=== PATIENT | male | born 1940 | race Caucasian/White ===

== ENCOUNTER 2017-03-19 09:42 | Inpatient (IN) | payer MEDICARE, OTHER ==
--- NOTE | 2017-03-19 10:29 | XRay Report ---
Chest 2 views: Compared to 02/28/17. Findings: Cardiomegaly. Trachea is midline. Stable pacemaker. Pleural thickening and/ or pleural effusion right chest. No definite acute consolidation. No significant venous congestion. Impression: Pleural thickening and/or pleural effusion right chest.
[2017-03-19 10:37] LABS: Basophils % (Auto) 0.3 % (0.0-1.8); Eosinophils % (Auto) 0.6 % (0.0-4.3); Hematocrit 29.5 % (35.5-45.6); Hemoglobin 9.7 gm/dl (11.8-15.2); Mean Corpuscular HGB Conc 33 % (32-34); Mean Corpuscular Hemoglobin 30 pg (28-32); Mean Corpuscular Volume 92 fl (84-94); Platelet Count 124 K/mm3 (140-440); Red Blood Count 3.21 M/mm3 (3.65-5.03); Red Cell Distribution Width 16.9 % (13.2-15.2); White Blood Count 7.6 K/mm3 (4.5-11.0)
[2017-03-19 10:54] LABS: BUN/Creatinine Ratio 11.12; Calcium 6.7 mg/dL (8.4-10.2); Chloride 90.8 mmol/L (98-107); Potassium 4.4 mmol/L (3.6-5.0)
--- NOTE | 2017-03-19 11:11 | Emergency Department Report ---
- General Chief complaint: Weakness Stated complaint: WEAKNESS/CINDA Time Seen by Provider: 03/19/17 10:06 Source: EMS Mode of arrival: Stretcher Limitations: Physical Limitation - History of Present Illness Initial comments: 76-year-old 76-year-old male here with end-stage renal disease complaining of shortness of breath nausea vomiting. States he almost finished his normal dialysis but has to be removed from itching. Started vomiting while in the bathroom. Denies abdominal pain or chest pain. Does complain of some mild shortness of breath. No fevers chills cough. He was in his normal state of health up until this point. According to family he appears to be close to his baseline. MD Complaint: generalized weakness -: Sudden Severity: mild Consistency: constant Improves with: none Worsens with: none Associated Symptoms: nausea/vomiting, shortness of breath. denies: chest pain, confusion, dark stools, diaphoresis, dysuria - Related Data Home Medications Medication Instructions Recorded Confirmed Last Taken Ca Carb/D3/Mag Ox/Water Pumping Station Engineer/Morgan/Zn 1 each PO DAILY 08/25/15 03/19/17 03/18/17 [Caltrate+D3 Plus Mineral Minis] Calcium Carbonate/Vitamin D3 1 each PO DAILY 02/28/17 03/19/17 03/18/17 [Caltrate 600 Plus D3 Tablet] Prednisone [predniSONE] 2.5 mg PO QDAY 02/28/17 03/19/17 03/18/17 Vit B Comp&C/Folic Acid/Vit D3 1 each PO DAILY 02/28/17 03/19/17 03/18/17 [Dialyvite 800 Plus D Wafer] Previous Rx's Medication Instructions Recorded Last Taken Type Acetaminophen/Codeine [Tylenol 1 tab PO Q6H PRN #30 tab 03/02/17 Unknown Rx /Codeine # 3 tab] Carvedilol [Coreg] 3.125 mg PO DAILY #30 tablet 03/02/17 03/18/17 Rx Lisinopril [Zestril TAB] 2.5 mg PO QDAY #30 tablet 03/02/17 03/18/17 Rx Megestrol [Megace] 400 mg PO DAILY #30 oral.liqd 03/02/17 03/18/17 Rx Allergies Allergy/AdvReac Type Severity Reaction Status Date / Time No Known Allergies Allergy Verified 09/29/15 14:30 ED Review of Systems ROS: Stated complaint: WEAKNESS/CINDA Other details as noted in HPI Comment: All other systems reviewed and negative Constitutional: denies: chills, fever Eyes: denies: eye pain, eye discharge, vision change ENT: denies: ear pain, throat pain Respiratory: shortness of breath, SOB at rest. denies: cough, SOB with exertion , wheezing Cardiovascular: denies: chest pain, palpitations Endocrine: no symptoms reported Gastrointestinal: nausea, vomiting. denies: abdominal pain, diarrhea Genitourinary: denies: urgency, dysuria Musculoskeletal: denies: back pain, joint swelling, arthralgia Skin: denies: rash, lesions Neurological: denies: headache, weakness, paresthesias Psychiatric: denies: anxiety, depression Hematological/Lymphatic: denies: easy bleeding, easy bruising ED Past Medical Hx - Past Medical History Previous Medical History?: Yes Hx Hypertension: Yes Hx Heart Attack/AMI: Yes Hx Congestive Heart Failure: Yes Hx Renal Disease: Yes (dialysis M, W, F) Hx Arthritis: Yes Hx COPD: Yes Hx HIV: No Additional medical history: kidney and prostate cancer - Surgical History Past Surgical History?: Yes Hx Pacemaker: Yes Hx Internal Defibrillator: Yes Additional Surgical History: Bilateral nephrectomy secondary to renal CA. R great toe amputation - Family History Family history: no significant - Social History Smoking Status: Never Smoker Substance Use Type: None - Medications Home Medications: Home Medications Medication Instructions Recorded Confirmed Last Taken Type Ca Carb/D3/Mag Ox/Water Pumping Station Engineer/Morgan/Zn 1 each PO DAILY 08/25/15 03/19/17 03/18/17 History [Caltrate+D3 Plus Mineral Minis] Calcium Carbonate/Vitamin D3 1 each PO DAILY 02/28/17 03/19/17 03/18/17 History [Caltrate 600 Plus D3 Tablet] Prednisone [predniSONE] 2.5 mg PO QDAY 02/28/17 03/19/17 03/18/17 History Vit B Comp&C/Folic Acid/Vit D3 1 each PO DAILY 02/28/17 03/19/17 03/18/17 History [Dialyvite 800 Plus D Wafer] Acetaminophen/Codeine [Tylenol 1 tab PO Q6H PRN #30 tab 03/02/17 03/19/17 Unknown Rx /Codeine # 3 tab] Carvedilol [Coreg] 3.125 mg PO DAILY #30 tablet 03/02/17 03/19/17 03/18/17 Rx Lisinopril [Zestril TAB] 2.5 mg PO QDAY #30 tablet 03/02/17 03/19/17 03/18/17 Rx Megestrol [Megace] 400 mg PO DAILY #30 oral.liqd 03/02/17 03/19/17 03/18/17 Rx ED Physical Exam - General Limitations: Physical Limitation General appearance: alert, in no apparent distress - Head Head exam: Present: atraumatic, normocephalic - Eye Eye exam: Present: normal appearance - ENT ENT exam: Present: mucous membranes moist - Neck Neck exam: Present: normal inspection - Respiratory Respiratory exam: Present: normal lung sounds bilaterally, decreased breath sounds (decreased breath sounds on the right side). Absent: respiratory distress - Cardiovascular Cardiovascular Exam: Present: regular rate, normal rhythm. Absent: systolic murmur, diastolic murmur, rubs, gallop - GI/Abdominal GI/Abdominal exam: Present: soft, normal bowel sounds - Rectal Rectal exam: Present: deferred - Extremities Exam Extremities exam: Present: normal inspection, other (right arm dialysis fistula) - Back Exam Back exam: Present: normal inspection. Absent: tenderness, CVA tenderness (R), CVA tenderness (L) - Neurological Exam Neurological exam: Present: alert, oriented X3 - Psychiatric Psychiatric exam: Present: normal affect, normal mood - Skin Skin exam: Present: warm, dry, intact, normal color. Absent: rash ED Course Vital Signs 03/19/17 09:56 Temperature 98.4 F Pulse Rate 76 Respiratory 21 Rate Blood Pressure 136/71 O2 Sat by Pulse 97 Oximetry ED Medical Decision Making - Lab Data Result diagrams: 03/19/17 10:21 03/19/17 10:21 Laboratory Results - last 24 hr 03/19/17 03/19/17 10:21 10:21 WBC 7.6 RBC 3.21 L Hgb 9.7 L Hct 29.5 L MCV 92 MCH 30 MCHC 33 RDW 16.9 H Plt Count 124 L Lymph % (Auto) 3.7 L [place] % (Auto) 7.1 Eos % (Auto) 0.6 Baso % (Auto) 0.3 Lymph # 0.3 L [place] # 0.5 Eos # 0.0 Baso # 0.0 Seg Neutrophils % 88.3 H Seg Neutrophils # 6.7 Sodium 135 L Potassium 4.4 Chloride 90.8 L Carbon Dioxide 24 Anion Gap 25 BUN 89 H Creatinine 8.0 H Estimated GFR 7 BUN/Creatinine Ratio 11.12 Glucose 122 H Calcium 6.7 L Troponin T 0.327 H* - EKG Data -: EKG Interpreted by Ak - EKG Data 03/19/17 11:10 Paced rate is 71 left axis deviation and prolonged QTC of [address] segment changes T-wave inversion in V2 - Radiology Data Radiology results: report reviewed, image reviewed - Medical Decision Making Patient is a 76-year-old male with a history of end-stage renal disease here with complaint of shortness of breath and nausea and vomiting. Denies chest pain. EKG without ischemic changes. He is paced. On clinical exam he had some decreased breath sounds on the right side. This is consistent with his x- ray which shows a likely pleural effusion on the right. Unclear etiology of this effusion. His troponin is 0.32. It is likely this is related to his renal failure however this is slightly higher than typical. Plan to admit the patient to the internal medicine service. Chest x-ray shows a right-sided pleural effusion. Given the patient's symptoms and recurrence of these finding on x-ray plan to admit the patient to the hospitalist service. Discussed case with hospitalist and plan to admit. Portions of this chart were dictated with dictation software. There may be dictation errors contained within this note. Critical care attestation.: If time is entered above; I have spent that time in minutes in the direct care of this critically ill patient, excluding procedure time. ED Disposition Clinical Impression: Elevated troponin, Pulmonary edema Chronic congestive heart failure Qualifiers: Congestive heart failure type: unspecified congestive heart failure type Qualified Code(s): I50.9 - Heart failure, unspecified Disposition: 09 OP ADMIT IP TO THIS HOSP Is pt being admited?: Yes Condition: Stable
--- NOTE | 2017-03-19 11:37 | History and Physical Report ---
History of Present Illness Chief complaint: I feel weak, and i cant hardly catch my breath History of present illness: 76 YO Male with HTN, SC, CHF, ESRD on HD (M,W,F), OA, COPD, RCC, CaP presents to ED for evaluation. Pt states that he has experienced shortness of breath, nausea, with 2 episodes of vomiting over the past 6 hours. Pt was undergoing dialysis and could not complete due to itching, as well as the aforementioned symptoms. Pt denies fever, chills, CP, Palpitations, Syncope, recent ill contacts, productive cough, hemoptysis, BRBPR, unintentional weight loss, or night sweats. Past History Past Medical History: acute SC, arthritis, cancer, COPD, ESRD, hypertension Past Surgical History: Other (Bilateral nephrectomy secondary to renal CA. R great toe amputation,ICD placement) Social history: , lives with family. denies: smoking, alcohol abuse, prescription drug abuse, IV drug use Family history: CAD, hypertension Medications and Allergies Allergies Allergy/AdvReac Type Severity Reaction Status Date / Time No Known Allergies Allergy Verified 09/29/15 14:30 Home Medications Medication Instructions Recorded Confirmed Last Taken Type Ca Carb/D3/Mag Ox/Childcare Administrator/Morgan/Zn 1 each PO DAILY 08/25/15 03/19/17 03/18/17 History [Caltrate+D3 Plus Mineral Minis] Calcium Carbonate/Vitamin D3 1 each PO DAILY 02/28/17 03/19/17 03/18/17 History [Caltrate 600 Plus D3 Tablet] Prednisone [predniSONE] 2.5 mg PO QDAY 02/28/17 03/19/17 03/18/17 History Vit B Comp&C/Folic Acid/Vit D3 1 each PO DAILY 02/28/17 03/19/17 03/18/17 History [Dialyvite 800 Plus D Wafer] Acetaminophen/Codeine [Tylenol 1 tab PO Q6H PRN #30 tab 03/02/17 03/19/17 Unknown Rx /Codeine # 3 tab] Carvedilol [Coreg] 3.125 mg PO DAILY #30 tablet 03/02/17 03/19/17 03/18/17 Rx Lisinopril [Zestril TAB] 2.5 mg PO QDAY #30 tablet 03/02/17 03/19/17 03/18/17 Rx Megestrol [Megace] 400 mg PO DAILY #30 oral.liqd 03/02/17 03/19/17 03/18/17 Rx Review of Systems Constitutional: no weight loss, no weight gain, no fever Ears, nose, mouth and throat: no ear pain, no ear discharge Cardiovascular: shortness of breath, no chest pain, no syncope Respiratory: shortness of breath, dyspnea on exertion, no cough with sputum Gastrointestinal: no abdominal pain, no nausea, no vomiting Genitourinary Male: no dysuria, no hematuria, no flank pain Rectal: no pain, no bleeding Musculoskeletal: no neck stiffness, no neck pain Integumentary: no rash, no pruritis Neurological: no head injury Psychiatric: no anxiety, no memory loss Endocrine: no cold intolerance, no heat intolerance Hematologic/Lymphatic: no easy bruising, no easy bleeding Allergic/Immunologic: no urticaria Exam - Constitutional Vitals: Temp Pulse Resp BP Pulse Ox 98.4 F 76 21 136/71 97 03/19/17 09:56 03/19/17 09:56 03/19/17 09:56 03/19/17 09:56 03/19/17 09:56 General appearance: Present: mild distress - EENT Eyes: Present: PERRL ENT: hearing intact, clear oral mucosa - Neck Neck: Present: supple, normal ROM - Respiratory Respiratory effort: labored Respiratory: bilateral: diminished, rhonchi - Cardiovascular Heart Sounds: Present: S1 & S2. Absent: rub, click - Extremities Extremities: pulses symmetrical, No edema Extremity abnormal: edema Peripheral Pulses: within normal limits - Abdominal General gastrointestinal: Present: soft, non-tender, non-distended, normal bowel sounds Male genitourinary: Present: normal - Integumentary Integumentary: Present: clear, warm, dry - Musculoskeletal Musculoskeletal: generalized weakness - Psychiatric Psychiatric: appropriate mood/affect, cooperative - Neurologic Neurologic: CNII-XII intact, moves all extremities Results - Labs CBC & Chem 7: 03/19/17 10:21 03/19/17 10:21 Labs: Abnormal lab results 03/19/17 03/19/17 Range/Units 10:21 10:21 RBC 3.21 L (3.65-5.03) M/mm3 Hgb 9.7 L (11.8-15.2) gm/dl Hct 29.5 L (35.5-45.6) % RDW 16.9 H (13.2-15.2) % Plt Count 124 L (140-440) K/mm3 Lymph % (Auto) 3.7 L (13.4-35.0) % Lymph # 0.3 L (1.2-5.4) K/mm3 Seg Neutrophils % 88.3 H (40.0-70.0) % Sodium 135 L (137-145) mmol/L Chloride 90.8 L (98-107) mmol/L BUN 89 H (9-20) mg/dL Creatinine 8.0 H (0.8-1.5) mg/dL Glucose 122 H (75-100) mg/dL Calcium 6.7 L (8.4-10.2) mg/dL Troponin T 0.327 H* (0.00-0.029) ng/mL Assessment and Plan - Patient Problems (1) Acute respiratory failure Current Visit: No Status: Acute Qualifiers: Respiratory failure complication: hypoxia Qualified Code(s): J96.01 - Acute respiratory failure with hypoxia Plan to address problem: Supplemental oxygen, nebs, aspiration precautions, supportive care, NIPPV as clinically indicated, pulmonary toilet (2) COPD (chronic obstructive pulmonary disease) Current Visit: No Status: Chronic Qualifiers: COPD type: C Chronic bronchitis type: C Emphysema type: E Plan to address problem: supplemental oxygen, nebs, aspiration precautions, dialysis as per renal team (3) End stage renal disease on dialysis Current Visit: No Status: Chronic Plan to address problem: Nephrology consulted, dialysis as per renal team. (4) Hypertension Current Visit: No Status: Chronic Qualifiers: Hypertension type: essential hypertension Qualified Code(s): I10 - Essential (primary) hypertension Plan to address problem: resume home medication, monitor bp q shift (5) Hyponatremia syndrome Current Visit: Yes Status: Acute Plan to address problem: fluid restriction, dialysis as per renal team, repeat bmp (6) Prostate cancer Current Visit: Yes Status: Acute Plan to address problem: Supportive care, (7) Renal cell carcinoma Current Visit: Yes Status: Acute Qualifiers: Laterality: L Plan to address problem: S/P Nephrectomy, continue current care (8) DVT prophylaxis Current Visit: No Status: Suspected
[2017-03-19] MEDS ORDERED: DULCOLAX PR PRN (11:39)
[2017-03-19] MEDS ORDERED: PROVENTIL IH PRN (11:39)
[2017-03-19] MEDS ORDERED: MILK OF MAGNESIA PO PRN (11:39)
[2017-03-19] MEDS ORDERED: TYLENOL PO PRN (11:39)
[2017-03-19] MEDS ORDERED: ZOFRAN IV PRN (11:39)
--- NOTE | 2017-03-19 12:01 | Admit Criteria Form ---
Admission Criteria Documentation: PULMONARY EDEMA Clinical Indications for Admission to Inpatient Care (Place 'X' for any and all applicable criteria): Admission is indicated by ANY ONE of the following(1)(2)(3)(4): [ ]I. Severe electrolyte abnormalities requiring inpatient care(9) [ ]II. Hemodynamic instability [ ]III. Anasarca [ ]IV. Acute cardiac ischemia causing or associated with failure (Also use Angina or Myocardial Infarction as appropriate) [ ]V. Cardiac arrhythmias of immediate concern [ ]. Precipitating cause for acute decompensation (eg, pneumonia, pulmonary embolism) requires inpatient care [ ]VII. Pulmonary edema that is very severe (eg, mechanical ventilation needed, imminent or likely, need for 100% oxygen to keep oxygen saturation above 90%) [X]VIII. Inpatient admission required rather than observation care (Also use Heart Failure: Observation Care as appropriate) because of ANY ONE of the following: [ ]a) Pulmonary edema that is severe or worsening as indicated by ALL of the following: [ ]i) New need for oxygen therapy to keep oxygen saturation above 90% (or increased FiO2 need from baseline) [ ]ii) Has not improved sufficiently with emergency department or observation care IV diuretics or other heart failure treatments[C] [ ]b) Cognitive impairment that is severe or persistent [ ]c) Increased creatinine (new on laboratory test) with reduction of more than 50% in estimated glomerular filtration rate from baseline. [ ]d) Acute renal insufficiency (progressively (ongoing) rising creatinine (known from past laboratory test) with reduction of more than 25% in estimated glomerular filtration rate from baseline) [ ]e) Acute peripheral ischemia (eg, pulseless, cool, mottled, or cyanotic extremity) [ ]f) Acute renal failure [ ]g) Supplemental O2 or respiratory treatment for >24 hr that are performable only in acute inpatient setting [ ]h) Pulmonary artery catheter monitoring [X]i) Other condition, treatment or monitoring requiring inpatient admission Extended stay beyond goal length of stay may be needed for(1)(3)(21)(25): [ ]a) Cardiac ischemia, confirmed or suspected as precipitant [ ]b) Cardiogenic shock or refractory pulmonary edema [ ]c) Acute kidney injury or renal failure [ ]d) Respiratory failure (eg, need for noninvasive or invasive mechanical ventilation) (23) [ ]e) Concomitant pneumonia or significant electrolyte abnormality (eg, severe hyponatremia) [ ]f) Newly diagnosed (new onset) atrial fibrillation [ ]g) Stage IV chronic kidney disease (estimated glomerular filtration rate of less than 30 mL/min/1.73m2 (0.50 mL/sec/1.73m2), and not previously on chronic dialysis (Contents from HEART FAILURE clinical indications for admission to inpatient care have been integrated in this form) The original [facility] content created by [facility] has been revised. The portions of the content which have been revised are identified through the use of italic text or in bold, and [facility] has neither reviewed nor approved the modified material. All other unmodified content is copyright [facility] Please see references footnoted in the original [facility] [employer] edition 2016 Admission Criteria Met: Yes
--- NOTE | 2017-03-20 07:22 | Progress Note ---
Hospitalist Physical - Constitutional Vitals: Temp Pulse Resp BP Pulse Ox 97.6 F 72 18 128/68 98 03/20/17 05:04 03/20/17 05:04 03/20/17 05:04 03/20/17 05:04 03/20/17 05:04 General appearance: Present: mild distress Results - Labs CBC & Chem 7: 03/19/17 10:21 03/19/17 10:21 Labs: Laboratory Last Values WBC 7.6 K/mm3 (4.5-11.0) 03/19/17 10:21 RBC 3.21 M/mm3 (3.65-5.03) L 03/19/17 10:21 Hgb 9.7 gm/dl (11.8-15.2) L 03/19/17 10:21 Hct 29.5 % (35.5-45.6) L 03/19/17 10:21 MCV 92 fl (84-94) 03/19/17 10:21 MCH 30 pg (28-32) 03/19/17 10:21 MCHC 33 % (32-34) 03/19/17 10:21 RDW 16.9 % (13.2-15.2) H 03/19/17 10:21 Plt Count 124 K/mm3 (140-440) L 03/19/17 10:21 Lymph % (Auto) 3.7 % (13.4-35.0) L 03/19/17 10:21 [place] % (Auto) 7.1 % (0.0-7.3) 03/19/17 10:21 Eos % (Auto) 0.6 % (0.0-4.3) 03/19/17 10:21 Baso % (Auto) 0.3 % (0.0-1.8) 03/19/17 10:21 Lymph # 0.3 K/mm3 (1.2-5.4) L 03/19/17 10:21 [place] # 0.5 K/mm3 (0.0-0.8) 03/19/17 10:21 Eos # 0.0 K/mm3 (0.0-0.4) 03/19/17 10:21 Baso # 0.0 K/mm3 (0.0-0.1) 03/19/17 10:21 Seg Neutrophils % 88.3 % (40.0-70.0) H 03/19/17 10:21 Seg Neutrophils # 6.7 K/mm3 (1.8-7.7) 03/19/17 10:21 Sodium 135 mmol/L (137-145) L 03/19/17 10:21 Potassium 4.4 mmol/L (3.6-5.0) 03/19/17 10:21 Chloride 90.8 mmol/L (98-107) L 03/19/17 10:21 Carbon Dioxide 24 mmol/L (22-30) 03/19/17 10:21 Anion Gap 25 mmol/L 03/19/17 10:21 BUN 89 mg/dL (9-20) H 03/19/17 10:21 Creatinine 8.0 mg/dL (0.8-1.5) H 03/19/17 10:21 Estimated GFR 7 ml/min 03/19/17 10:21 BUN/Creatinine Ratio 11.12 % 03/19/17 10:21 Glucose 122 mg/dL (75-100) H 03/19/17 10:21 Calcium 6.7 mg/dL (8.4-10.2) L 03/19/17 10:21 Troponin T 0.327 ng/mL (0.00-0.029) H* 03/19/17 10:21 Triglycerides 86 mg/dL (2-149) 03/19/17 10:21 Cholesterol 142 mg/dL (50-199) 03/19/17 10:21 LDL Cholesterol Direct 65 mg/dL (50-130) 03/19/17 10:21 HDL Cholesterol 60 mg/dL (40-59) H 03/19/17 10:21 Cholesterol/HDL Ratio 2.36 % 03/19/17 10:21
--- NOTE | 2017-03-20 08:00 | Progress Note ---
<PEDRO PABLOAHSLEYMELANIESALVATORE - Last Filed: 03/20/17 15:12> Assessment and Plan Assessment and plan: Acute respiratory failure Patient oxygen saturation improved currently on room air with SPO2 >95%. No acute respiratory distress noted. Aggressive nebs Supplemental oxygen as necessary Aspiration precautions NIPPV as clinically indicated pulmonary toilet C. difficile infection Started on Flagyl 500 mg when necessary Placed on contact isolation COPD (chronic obstructive pulmonary disease) Started on Duoneb every 6 hours Supplemental oxygen as necessary End stage renal disease on dialysis On dialysis Managed by Nephrology Hypertension Resume home antihypertensive medication. Closely monitor blood pressure Hyponatremia syndrome Fluid restriction and patient has Dialysis today that will correct it. Closely monitor Electrolytes Prostate cancer Supportive care Renal cell carcinoma S/P Nephrectomy, continue current care DVT prophylaxis heparin History Interval history: Patient complains diarrhea, that started last night, denies nausea and vomiting. Hospitalist Physical - Constitutional Vitals: Temp Pulse Resp BP Pulse Ox 97.9 F 79 20 117/59 100 03/20/17 07:20 03/20/17 07:20 03/20/17 07:20 03/20/17 07:20 03/20/17 07:20 General appearance: Present: mild distress - EENT Eyes: Present: PERRL ENT: hearing intact - Neck Neck: Present: supple - Respiratory Respiratory effort: normal Respiratory: bilateral: diminished - Cardiovascular Rhythm: regular Heart Sounds: Present: S1 & S2 - Extremities Extremities: no ischemia Peripheral Pulses: within normal limits - Abdominal General gastrointestinal: soft, non-tender - Integumentary Integumentary: Present: clear, warm, dry - Psychiatric Psychiatric: appropriate mood/affect - Neurologic Neurologic: CNII-XII intact - Allied Health Allied health notes reviewed: nursing Results - Labs CBC & Chem 7: 03/20/17 08:57 03/20/17 08:57 Labs: Laboratory Last Values WBC 7.6 K/mm3 (4.5-11.0) 03/19/17 10:21 RBC 3.21 M/mm3 (3.65-5.03) L 03/19/17 10:21 Hgb 9.7 gm/dl (11.8-15.2) L 03/19/17 10:21 Hct 29.5 % (35.5-45.6) L 03/19/17 10:21 MCV 92 fl (84-94) 03/19/17 10:21 MCH 30 pg (28-32) 03/19/17 10:21 MCHC 33 % (32-34) 03/19/17 10:21 RDW 16.9 % (13.2-15.2) H 03/19/17 10:21 Plt Count 124 K/mm3 (140-440) L 03/19/17 10:21 Lymph % (Auto) 3.7 % (13.4-35.0) L 03/19/17 10:21 Gregory % (Auto) 7.1 % (0.0-7.3) 03/19/17 10:21 Eos % (Auto) 0.6 % (0.0-4.3) 03/19/17 10:21 Baso % (Auto) 0.3 % (0.0-1.8) 03/19/17 10:21 Lymph # 0.3 K/mm3 (1.2-5.4) L 03/19/17 10:21 Gregory # 0.5 K/mm3 (0.0-0.8) 03/19/17 10:21 Eos # 0.0 K/mm3 (0.0-0.4) 03/19/17 10:21 Baso # 0.0 K/mm3 (0.0-0.1) 03/19/17 10:21 Seg Neutrophils % 88.3 % (40.0-70.0) H 03/19/17 10:21 Seg Neutrophils # 6.7 K/mm3 (1.8-7.7) 03/19/17 10:21 Sodium 135 mmol/L (137-145) L 03/19/17 10:21 Potassium 4.4 mmol/L (3.6-5.0) 03/19/17 10:21 Chloride 90.8 mmol/L (98-107) L 03/19/17 10:21 Carbon Dioxide 24 mmol/L (22-30) 03/19/17 10:21 Anion Gap 25 mmol/L 03/19/17 10:21 BUN 89 mg/dL (9-20) H 03/19/17 10:21 Creatinine 8.0 mg/dL (0.8-1.5) H 03/19/17 10:21 Estimated GFR 7 ml/min 03/19/17 10:21 BUN/Creatinine Ratio 11.12 % 03/19/17 10:21 Glucose 122 mg/dL (75-100) H 03/19/17 10:21 Calcium 6.7 mg/dL (8.4-10.2) L 03/19/17 10:21 Troponin T 0.327 ng/mL (0.00-0.029) H* 03/19/17 10:21 Triglycerides 86 mg/dL (2-149) 03/19/17 10:21 Cholesterol 142 mg/dL (50-199) 03/19/17 10:21 LDL Cholesterol Direct 65 mg/dL (50-130) 03/19/17 10:21 HDL Cholesterol 60 mg/dL (40-59) H 03/19/17 10:21 Cholesterol/HDL Ratio 2.36 % 03/19/17 10:21 <SPIKE MAYS - Last Filed: 03/20/17 18:44> Assessment and Plan Assessment and plan: I saw and evaluated the patient. I agree with the findings and the plan of care as documented in the Nurse Practitioner's~note, with the following corrections and additions. Patient has mild diarrhea Stool for C. difficile is positive Started Flagyl 50mg three times a day Contact isolation and supportive care Hemodialysis per schedule Nephrology evaluation noted and appreciated Hospitalist Physical - Constitutional Vitals: Temp Pulse Resp BP Pulse Ox 97.7 F 75 20 110/62 97 03/20/17 15:59 03/20/17 15:59 03/20/17 15:59 03/20/17 15:59 03/20/17 10:27 Results - Labs CBC & Chem 7: 03/20/17 08:57 03/20/17 08:57 Labs: Laboratory Last Values WBC 7.5 K/mm3 (4.5-11.0) 03/20/17 08:57 RBC 3.50 M/mm3 (3.65-5.03) L 03/20/17 08:57 Hgb 10.3 gm/dl (11.8-15.2) L 03/20/17 08:57 Hct 32.3 % (35.5-45.6) L 03/20/17 08:57 MCV 92 fl (84-94) 03/20/17 08:57 MCH 30 pg (28-32) 03/20/17 08:57 MCHC 32 % (32-34) 03/20/17 08:57 RDW 17.2 % (13.2-15.2) H 03/20/17 08:57 Plt Count 135 K/mm3 (140-440) L 03/20/17 08:57 Lymph % (Auto) 13.0 % (13.4-35.0) L 03/20/17 08:57 Gregory % (Auto) 8.4 % (0.0-7.3) H 03/20/17 08:57 Eos % (Auto) 1.0 % (0.0-4.3) 03/20/17 08:57 Baso % (Auto) 0.5 % (0.0-1.8) 03/20/17 08:57 Lymph # 1.0 K/mm3 (1.2-5.4) L 03/20/17 08:57 Gregory # 0.6 K/mm3 (0.0-0.8) 03/20/17 08:57 Eos # 0.1 K/mm3 (0.0-0.4) 03/20/17 08:57 Baso # 0.0 K/mm3 (0.0-0.1) 03/20/17 08:57 Seg Neutrophils % 77.1 % (40.0-70.0) H 03/20/17 08:57 Seg Neutrophils # 5.8 K/mm3 (1.8-7.7) 03/20/17 08:57 Sodium 134 mmol/L (137-145) L 03/20/17 08:57 Potassium 4.8 mmol/L (3.6-5.0) 03/20/17 08:57 Chloride 90.1 mmol/L (98-107) L 03/20/17 08:57 Carbon Dioxide 22 mmol/L (22-30) 03/20/17 08:57 Anion Gap 27 mmol/L 03/20/17 08:57 BUN 98 mg/dL (9-20) H 03/20/17 08:57 Creatinine 9.4 mg/dL (0.8-1.5) H 03/20/17 08:57 Estimated GFR 5 ml/min 03/20/17 08:57 BUN/Creatinine Ratio 10.42 % 03/20/17 08:57 Glucose 97 mg/dL (75-100) 03/20/17 08:57 Calcium 6.2 mg/dL (8.4-10.2) L 03/20/17 08:57 Troponin T 0.327 ng/mL (0.00-0.029) H* 03/19/17 10:21 Triglycerides 86 mg/dL (2-149) 03/19/17 10:21 Cholesterol 142 mg/dL (50-199) 03/19/17 10:21 LDL Cholesterol Direct 65 mg/dL (50-130) 03/19/17 10:21 HDL Cholesterol 60 mg/dL (40-59) H 03/19/17 10:21 Cholesterol/HDL Ratio 2.36 % 03/19/17 10:21
--- NOTE | 2017-03-20 08:33 | Consultation ---
History of Present Illness - Reason for Consult Consult date: 03/20/17 end stage renal disease - History of Present Illness Mr. De León is a 76yo gentleman on HD MWF who presented to the ED with hx of persistent diarrhea. He denies fever, chills. He denies abdominal pain, nausea and vomiting. He does report generalized weakness. Past History Past Medical History: acute [place], arthritis, cancer, COPD, ESRD, hypertension Past Surgical History: Other (Bilateral nephrectomy secondary to renal CA. R great toe amputation,ICD placement) Social history: , lives with family. denies: smoking, alcohol abuse, prescription drug abuse, IV drug use Family history: CAD, hypertension Medications and Allergies Allergies Allergy/AdvReac Type Severity Reaction Status Date / Time No Known Allergies Allergy Verified 09/29/15 14:30 Home Medications Medication Instructions Recorded Confirmed Last Taken Type Ca Carb/D3/Mag Ox/Optical Engineering Technician/Morgan/Zn 1 each PO DAILY 08/25/15 03/19/17 03/18/17 History [Caltrate+D3 Plus Mineral Minis] Calcium Carbonate/Vitamin D3 1 each PO DAILY 02/28/17 03/19/17 03/18/17 History [Caltrate 600 Plus D3 Tablet] Prednisone [predniSONE] 2.5 mg PO QDAY 02/28/17 03/19/17 03/18/17 History Vit B Comp&C/Folic Acid/Vit D3 1 each PO DAILY 02/28/17 03/19/17 03/18/17 History [Dialyvite 800 Plus D Wafer] Acetaminophen/Codeine [Tylenol 1 tab PO Q6H PRN #30 tab 03/02/17 03/19/17 Unknown Rx /Codeine # 3 tab] Carvedilol [Coreg] 3.125 mg PO DAILY #30 tablet 03/02/17 03/19/17 03/18/17 Rx Lisinopril [Zestril TAB] 2.5 mg PO QDAY #30 tablet 03/02/17 03/19/17 03/18/17 Rx Megestrol [Megace] 400 mg PO DAILY #30 oral.liqd 03/02/17 03/19/17 03/18/17 Rx Active Meds: Active Medications Acetaminophen (Tylenol) 650 mg PO Q4H PRN PRN Reason: Pain MILD(1-3)/Fever >100.5/PHILLIPS Albuterol (Proventil) 2.5 mg IH Q4HRT PRN PRN Reason: Shortness Of Breath Bisacodyl (Dulcolax) 10 mg VT QDAY PRN PRN Reason: Constipation unrelieved by MOM Magnesium Hydroxide (Milk Of Magnesia) 30 ml PO Q4H PRN PRN Reason: Constipation Ondansetron HCl (Zofran) 4 mg IV Q8H PRN PRN Reason: N/V unrelieved by Reglan Review of Systems Constitutional: weakness, no fever, no chills, no sweats Cardiovascular: no chest pain, no shortness of breath Respiratory: no cough, no shortness of breath, no dyspnea on exertion Gastrointestinal: diarrhea, no abdominal pain, no nausea, no vomiting Integumentary: no rash Neurological: weakness Exam - Vital Signs Vital signs: Vital Signs Temp Pulse Resp BP Pulse Ox 98.4 F 76 21 136/71 97 03/19/17 09:56 03/19/17 09:56 03/19/17 09:56 03/19/17 09:56 03/19/17 09:56 - General Appearance General appearance: well-developed, frail EENT: ATNC Respiratory: Clear to Ascultation Heart: regular, S1S2 Gastrointestinal: Present: normal. 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
[2017-03-20 09:28] LABS: Basophils % (Auto) 0.5 % (0.0-1.8); Hematocrit 32.3 % (35.5-45.6); Hemoglobin 10.3 gm/dl (11.8-15.2); Mean Corpuscular HGB Conc 32 % (32-34); Mean Corpuscular Hemoglobin 30 pg (28-32); Mean Corpuscular Volume 92 fl (84-94); Platelet Count 135 K/mm3 (140-440); Red Cell Distribution Width 17.2 % (13.2-15.2); White Blood Count 7.5 K/mm3 (4.5-11.0)
[2017-03-20 09:30] LABS: BUN/Creatinine Ratio 10.42; Calcium 6.2 mg/dL (8.4-10.2); Chloride 90.1 mmol/L (98-107); Potassium 4.8 mmol/L (3.6-5.0)
[2017-03-20] MEDS ORDERED: CA CARB PO SCH (10:00)
[2017-03-20] MEDS ORDERED: PREDNISONE 2.5 MG PO SCH (10:00)
[2017-03-20] MEDS ORDERED: MAG OX PO SCH (10:00)
[2017-03-20] MEDS ORDERED: NON-FORMULARY (Vit B Comp&C/Folic Acid/Vit D3 [Dialyvite 800 Plus D Wafer] 1 EACH) PO SCH (10:00)
[2017-03-20] MEDS ORDERED: D3 PO SCH (10:00)
[2017-03-20] MEDS ORDERED: [UNRECOGNIZED DRUG - OTHER] PO SCH (10:00)
[2017-03-20] MEDS ORDERED: VITAMIN D3 PO SCH (10:00)
[2017-03-20] MEDS ORDERED: CALCIUM CARBONATE PO SCH (10:00)
[2017-03-20] MEDS ORDERED: MANG PO SCH (10:00)
[2017-03-20] MEDS ORDERED: COP PO SCH (10:00)
[2017-03-20] MEDS: ZESTRIL PO SCH (11:26)
[2017-03-20] MEDS: DELTASONE PO SCH (11:27)
[2017-03-20] MEDS: COREG PO SCH (11:28)
[2017-03-20] MEDS: MEGACE PO SCH (13:24)
[2017-03-20] MEDS ORDERED: NACL 0.9% 1000 ML 1,000 ML IV SCH (14:00)
[2017-03-20] MEDS: DUONEB *Not for PRN Use IH SCH ×2 (14:55→21:20)
[2017-03-20] MEDS: FLAGYL PO SCH ×2 (15:00→22:27)
[2017-03-20] MEDS ORDERED: PROVENTIL IH SCH (16:00)
[2017-03-21] MEDS: DUONEB *Not for PRN Use IH SCH ×4 (02:22→20:06)
[2017-03-21] MEDS: FLAGYL PO SCH ×3 (05:29→22:44)
[2017-03-21 06:05] LABS: Basophils % (Auto) 0.3 % (0.0-1.8); Hematocrit 26.9 % (35.5-45.6); Hemoglobin 8.7 gm/dl (11.8-15.2); Mean Corpuscular HGB Conc 32 % (32-34); Mean Corpuscular Hemoglobin 30 pg (28-32); Mean Corpuscular Volume 92 fl (84-94); Platelet Count 107 K/mm3 (140-440); Red Blood Count 2.93 M/mm3 (3.65-5.03); Red Cell Distribution Width 16.9 % (13.2-15.2); White Blood Count 6.4 K/mm3 (4.5-11.0)
[2017-03-21 06:14] LABS: Chloride 92.8 mmol/L (98-107); Potassium 4.9 mmol/L (3.6-5.0)
[2017-03-21 06:20] LABS: Calcium 5.6 mg/dL (8.4-10.2)
[2017-03-21] MEDS ORDERED: CALCIUM GLUCONATE 1,000 MG in NACL 0.9% 100 ML IV ONE (06:30)
--- NOTE | 2017-03-21 08:33 | Progress Note ---
<PEDRO PABLOASHLEYMELANIESALVATORE - Last Filed: 03/21/17 14:43> Assessment and Plan Assessment and plan: Acute respiratory failure Resolved Patient transferred to MED/SURG floor, patient might be discharge home tomorrow. Patient oxygen saturation improved currently on room air with SPO2 >95%. No acute respiratory distress noted. Aggressive nebs Supplemental oxygen as necessary Aspiration precautions NIPPV as clinically indicated pulmonary toilet C. difficile infection Continue on Flagyl 500 by mouth every 8 hours Placed on contact isolation COPD (chronic obstructive pulmonary disease) Continue Duoneb every 6 hours Prednisone by mouth Supplemental oxygen as necessary End stage renal disease on dialysis On dialysis MWF Managed by Nephrology Hypertension Continue home antihypertensive medication. Closely monitor blood pressure Mild Hyponatremia Fluid restriction and patient has Dialysis today that will correct it. Closely monitor Electrolytes Prostate cancer Supportive care Renal cell carcinoma S/P Nephrectomy, continue current care DVT prophylaxis heparin History Interval history: Patient has uneventful overnight, he denies diarrhea, nausea and vomiting. Hospitalist Physical - Constitutional Vitals: Temp Pulse Resp BP Pulse Ox 97.8 F 80 18 108/60 99 03/21/17 08:00 03/21/17 08:00 03/21/17 08:00 03/21/17 08:00 03/21/17 08:00 General appearance: Present: mild distress - EENT Eyes: Present: PERRL ENT: hearing intact - Neck Neck: Present: supple - Respiratory Respiratory effort: normal Respiratory: bilateral: CTA - Cardiovascular Rhythm: regular Heart Sounds: Present: S1 & S2 - Extremities Extremities: no ischemia Peripheral Pulses: within normal limits - Abdominal General gastrointestinal: soft, non-tender - Integumentary Integumentary: Present: clear, warm, dry - Psychiatric Psychiatric: appropriate mood/affect - Neurologic Neurologic: CNII-XII intact - Allied Health Allied health notes reviewed: nursing Results - Labs CBC & Chem 7: 03/21/17 05:25 03/21/17 05:25 Labs: Laboratory Last Values WBC 6.4 K/mm3 (4.5-11.0) 03/21/17 05:25 RBC 2.93 M/mm3 (3.65-5.03) L 03/21/17 05:25 Hgb 8.7 gm/dl (11.8-15.2) L 03/21/17 05:25 Hct 26.9 % (35.5-45.6) L 03/21/17 05:25 MCV 92 fl (84-94) 03/21/17 05:25 MCH 30 pg (28-32) 03/21/17 05:25 MCHC 32 % (32-34) 03/21/17 05:25 RDW 16.9 % (13.2-15.2) H 03/21/17 05:25 Plt Count 107 K/mm3 (140-440) L 03/21/17 05:25 Lymph % (Auto) 10.7 % (13.4-35.0) L 03/21/17 05:25 Travis % (Auto) 9.0 % (0.0-7.3) H 03/21/17 05:25 Eos % (Auto) 1.0 % (0.0-4.3) 03/21/17 05:25 Baso % (Auto) 0.3 % (0.0-1.8) 03/21/17 05:25 Lymph # 0.7 K/mm3 (1.2-5.4) L 03/21/17 05:25 Travis # 0.6 K/mm3 (0.0-0.8) 03/21/17 05:25 Eos # 0.1 K/mm3 (0.0-0.4) 03/21/17 05:25 Baso # 0.0 K/mm3 (0.0-0.1) 03/21/17 05:25 Seg Neutrophils % 79.0 % (40.0-70.0) H 03/21/17 05:25 Seg Neutrophils # 5.1 K/mm3 (1.8-7.7) 03/21/17 05:25 Sodium 134 mmol/L (137-145) L 03/21/17 05:25 Potassium 4.9 mmol/L (3.6-5.0) 03/21/17 05:25 Chloride 92.8 mmol/L (98-107) L 03/21/17 05:25 Carbon Dioxide 21 mmol/L (22-30) L 03/21/17 05:25 Anion Gap 25 mmol/L 03/21/17 05:25 BUN 107 mg/dL (9-20) H 03/21/17 05:25 Creatinine 10.7 mg/dL (0.8-1.5) H 03/21/17 05:25 Estimated GFR 5 ml/min 03/21/17 05:25 BUN/Creatinine Ratio 10.00 % 03/21/17 05:25 Glucose 104 mg/dL (75-100) H 03/21/17 05:25 Calcium 5.6 mg/dL (8.4-10.2) L* 03/21/17 05:25 Troponin T 0.327 ng/mL (0.00-0.029) H* 03/19/17 10:21 Triglycerides 86 mg/dL (2-149) 03/19/17 10:21 Cholesterol 142 mg/dL (50-199) 03/19/17 10:21 LDL Cholesterol Direct 65 mg/dL (50-130) 03/19/17 10:21 HDL Cholesterol 60 mg/dL (40-59) H 03/19/17 10:21 Cholesterol/HDL Ratio 2.36 % 03/19/17 10:21 <SPIKE MAYS - Last Filed: 03/21/17 18:47> Assessment and Plan Assessment and plan: I saw and evaluated the patient. I agree with the findings and the plan of care as documented in the Nurse Practitioner's~note, with the following corrections and additions. Patient seen and evaluated, physical exam performed, formulated the treatment plan along with the nurse practitioner Agree with the above documentation and treatment plan Hospitalist Physical - Constitutional Vitals: Temp Pulse Resp BP Pulse Ox 98.3 F 70 18 142/86 96 03/21/17 17:50 03/21/17 17:50 03/21/17 17:50 03/21/17 17:50 03/21/17 12:00 Results - Labs CBC & Chem 7: 03/21/17 05:25 03/21/17 05:25 Labs: Laboratory Last Values WBC 6.4 K/mm3 (4.5-11.0) 03/21/17 05:25 RBC 2.93 M/mm3 (3.65-5.03) L 03/21/17 05:25 Hgb 8.7 gm/dl (11.8-15.2) L 03/21/17 05:25 Hct 26.9 % (35.5-45.6) L 03/21/17 05:25 MCV 92 fl (84-94) 03/21/17 05:25 MCH 30 pg (28-32) 03/21/17 05:25 MCHC 32 % (32-34) 03/21/17 05:25 RDW 16.9 % (13.2-15.2) H 03/21/17 05:25 Plt Count 107 K/mm3 (140-440) L 03/21/17 05:25 Lymph % (Auto) 10.7 % (13.4-35.0) L 03/21/17 05:25 Travis % (Auto) 9.0 % (0.0-7.3) H 03/21/17 05:25 Eos % (Auto) 1.0 % (0.0-4.3) 03/21/17 05:25 Baso % (Auto) 0.3 % (0.0-1.8) 03/21/17 05:25 Lymph # 0.7 K/mm3 (1.2-5.4) L 03/21/17 05:25 Travis # 0.6 K/mm3 (0.0-0.8) 03/21/17 05:25 Eos # 0.1 K/mm3 (0.0-0.4) 03/21/17 05:25 Baso # 0.0 K/mm3 (0.0-0.1) 03/21/17 05:25 Seg Neutrophils % 79.0 % (40.0-70.0) H 03/21/17 05:25 Seg Neutrophils # 5.1 K/mm3 (1.8-7.7) 03/21/17 05:25 Sodium 134 mmol/L (137-145) L 03/21/17 05:25 Potassium 4.9 mmol/L (3.6-5.0) 03/21/17 05:25 Chloride 92.8 mmol/L (98-107) L 03/21/17 05:25 Carbon Dioxide 21 mmol/L (22-30) L 03/21/17 05:25 Anion Gap 25 mmol/L 03/21/17 05:25 BUN 107 mg/dL (9-20) H 03/21/17 05:25 Creatinine 10.7 mg/dL (0.8-1.5) H 03/21/17 05:25 Estimated GFR 5 ml/min 03/21/17 05:25 BUN/Creatinine Ratio 10.00 % 03/21/17 05:25 Glucose 104 mg/dL (75-100) H 03/21/17 05:25 Calcium 5.6 mg/dL (8.4-10.2) L* 03/21/17 05:25 Troponin T 0.327 ng/mL (0.00-0.029) H* 03/19/17 10:21 Triglycerides 86 mg/dL (2-149) 03/19/17 10:21 Cholesterol 142 mg/dL (50-199) 03/19/17 10:21 LDL Cholesterol Direct 65 mg/dL (50-130) 03/19/17 10:21 HDL Cholesterol 60 mg/dL (40-59) H 03/19/17 10:21 Cholesterol/HDL Ratio 2.36 % 03/19/17 10:21
[2017-03-21] MEDS: COREG PO SCH (09:56)
[2017-03-21] MEDS: MEGACE PO SCH (09:57)
[2017-03-21] MEDS: DELTASONE PO SCH (09:58)
[2017-03-21] MEDS: ZESTRIL PO SCH (10:00)
[2017-03-21] MEDS: Renal Caps PO SCH (10:02)
--- NOTE | 2017-03-21 10:17 | Progress Note ---
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 Plan: * Hemodialysis MWF schedule * UF as tolerated * Abx per primary team * Epogen with HD * Renal diet Subjective Date of service: 03/21/17 Interval history: Patient reports no diarrhea today Objective - Vital Signs Vital signs: Vital Signs - 12hr 03/21/17 03/21/17 03/21/17 00:00 02:20 02:32 Temperature 98.3 F Pulse Rate 80 Pulse Rate [ 84 88 Bilateral Throughout] Respiratory 18 Rate Respiratory 16 16 Rate [Bilateral Throughout] Blood Pressure 113/61 O2 Sat by Pulse 97 Oximetry 03/21/17 03/21/17 04:00 08:00 Temperature 98.0 F 97.8 F Pulse Rate 79 80 Pulse Rate [ Bilateral Throughout] Respiratory 18 18 Rate Respiratory Rate [Bilateral Throughout] Blood Pressure 91/53 108/60 O2 Sat by Pulse 97 99 Oximetry - General Appearance General appearance: well-developed, frail EENT: ATNC Respiratory: Present: Clear to Ascultation Cardiology: regular, S1S2 Gastrointestinal: normal, no tenderness, no distended Integumentary: no rash Neurologic: alert and oriented x3 Musculoskeletal: other (no edema) Psychiatric: cooperative - Lab 03/21/17 05:25 03/21/17 05:25 Most recent lab results Calcium 5.6 mg/dL (8.4-10.2) L* 03/21/17 05:25
[2017-03-21] MEDS ORDERED: NACL 0.9% 100 ML IV PRN (11:00)
[2017-03-21] MEDS ORDERED: NACL 0.9 (PRIMING MACHINE ONLY DIALYSIS) MC ONE (15:04)
[2017-03-21] MEDS: TUMS PO SCH ×2 (17:09→22:44)
[2017-03-22] MEDS: DUONEB *Not for PRN Use IH SCH ×2 (01:13→07:31)
[2017-03-22] MEDS: FLAGYL PO SCH (06:20)
--- NOTE | 2017-03-22 08:17 | Discharge Summary ---
Providers - Providers Date of Admission: 03/19/17 11:39 Date of discharge: 03/22/17 Attending physician: SPIKE MAYS 03/19/17 11:47 Consult to Physician [CONS] Routine Consulting Provider: MONI REEVES Reason For Exam: esrd Place consult to:: answering service Notified:: yes Phone number called:: [phone] Was contact made?: Yes If yes, spoke with:: Yeimy Time called:: 13:08 Primary care physician: AMERICA LITTLE Hospitalization Condition: Good Hospital course: 76 YO Male with HTN, MO, CHF, ESRD on HD (M,W,F), OA, COPD, RCC, CaP presents to ED for evaluation. Pt states that he has experienced shortness of breath, nausea, with 2 episodes of vomiting over the past 6 hours. Patient was diagnosed with Acute respiratory failure,C. difficile infection, COPD (chronic obstructive pulmonary disease) End stage renal disease on dialysis, Hypertension , Mild Hyponatremia, Prostate cancer, Renal cell carcinoma. Patient S/P Nephrectomy.Patient was treated with dialysis,supplemental oxygen, nebulizer therapy, steroid, antihypertensive medications, antibiotic. Patient completed a full course of antibiotic. He is being discharged on oral antibiotic along with contact isolation (hand washing). Patient clinically improved and stable for discharge. Patient discharge to home hospice. Patient was advised to follow up with her primary care. Discharge Diagnosed Acute respiratory failure C. difficile infection COPD (chronic obstructive pulmonary disease) End stage renal disease on dialysis Hypertension Mild Hyponatremia Prostate cancer Renal cell carcinoma Disposition: DC-50 TO HOSPICE (HOME) Time spent for discharge: 33 minutes Core Measure Documentation - Palliative Care Palliative Care/ Comfort Measures: Not Applicable - Core Measures Any of the following diagnoses?: none Exam - Constitutional Vitals: Temp Pulse Resp BP Pulse Ox 98.9 F 84 18 154/55 96 03/21/17 19:00 03/22/17 07:39 03/22/17 07:39 03/21/17 19:00 03/22/17 07:32 General appearance: Present: no acute distress - EENT Eyes: Present: PERRL ENT: hearing intact - Neck Neck: Present: supple - Respiratory Respiratory effort: normal Respiratory: bilateral: CTA - Cardiovascular Heart rate: 89 Rhythm: regular Heart Sounds: Present: S1 & S2 - Extremities Extremities: no ischemia Peripheral Pulses: within normal limits - Abdominal General gastrointestinal: Present: soft, non-tender Male genitourinary: Present: deferred - Rectal Rectal Exam: deferred - Integumentary Integumentary: Present: clear, warm, dry - Musculoskeletal Musculoskeletal: strength equal bilaterally - Psychiatric Psychiatric: appropriate mood/affect - Neurologic Neurologic: CNII-XII intact - Allied Health Allied health notes reviewed: nursing Plan Activity: fall precautions Weight Bearing Status: Weight Bear as Tolerated Diet: low fat, low cholesterol, low salt Special Instructions: other (Contact Isolation (handwashing )) Follow up with: PRIMARY CARE, [Referring] - 3-5 Days Prescriptions: metroNIDAZOLE [Flagyl TAB] 500 mg PO Q8HR #30 tablet
--- NOTE | 2017-03-22 09:08 | Progress Note ---
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 Plan: * Hemodialysis MWF schedule * UF as tolerated * Abx per primary team * Epogen with HD * Renal diet * Note plans for d/c Subjective Date of service: 03/22/17 Interval history: Patient has no complaint today Objective - Vital Signs Vital signs: Vital Signs - 12hr 03/21/17 03/22/17 03/22/17 22:00 01:13 01:26 Pulse Rate Pulse Rate [ 75 73 Bilateral Throughout] Respiratory 16 16 Rate [Bilateral Throughout] Respiratory 18 Rate [LOCATION] O2 Sat by Pulse Oximetry 03/22/17 03/22/17 03/22/17 04:00 07:32 07:39 Pulse Rate 70 Pulse Rate [ 80 84 Bilateral Throughout] Respiratory 18 18 Rate [Bilateral Throughout] Respiratory Rate [LOCATION] O2 Sat by Pulse 96 Oximetry - General Appearance General appearance: well-developed, frail EENT: ATNC Respiratory: Present: Clear to Ascultation Cardiology: regular, S1S2 Gastrointestinal: normal, no tenderness, no distended Integumentary: no rash Musculoskeletal: other (no edema) Psychiatric: cooperative - Lab 03/21/17 05:25 03/21/17 05:25 Most recent lab results Calcium 5.6 mg/dL (8.4-10.2) L* 03/21/17 05:25
[2017-03-22] MEDS: COREG PO SCH (09:48)
[2017-03-22] MEDS: TUMS PO SCH (09:49)
[2017-03-22] MEDS: ZESTRIL PO SCH (09:49)
[2017-03-22] MEDS: Renal Caps PO SCH (09:49)
[2017-03-22] MEDS: DELTASONE PO SCH (09:50)
[2017-03-22] MEDS: MEGACE PO SCH (10:12)
[2017-03-22 10:32] VITALS: BP 114/52
[2017-03-22] MEDS ORDERED: TUMS PO SCH (11:22)
== END 2017-03-22 13:25 | disposition hospice, home (50) | DRG 371 ==
LOC: ED 09:42 → 4A 11:39 → CC2 03-21 13:40
PROVIDERS: ADMIT Internal Medicine; ATTEND Internal Medicine
PROC: 5A1D00Z (ICD-10-PCS; principal; 2017-03-21)
DX: A04.7 Enterocolitis due to Clostridium difficile (principal); J96.01 Acute respiratory failure with hypoxia; N18.6 End stage renal disease; E87.1 Hypo-osmolality and hyponatremia; I12.0 Hypertensive chronic kidney disease with stage 5 chronic kidney disease or end stage renal disease; C79.51 Secondary malignant neoplasm of bone; C61 Malignant neoplasm of prostate; J44.9 Chronic obstructive pulmonary disease, unspecified; Z82.49 Family history of ischemic heart disease and other diseases of the circulatory system; I25.2 Old myocardial infarction; M19.90 Unspecified osteoarthritis, unspecified site; Z79.899 Other long term (current) drug therapy; Z89.411 Acquired absence of right great toe; Z90.5 Acquired absence of kidney; D63.1 Anemia in chronic kidney disease
CPT/HCPCS: 36415; 71020; 80048; 80061; 82330; 84484; 85007; 85025; 87045; 87493; 93005; 93010; 94640; 94760; J0610; J0885; J7030; J7512

== ENCOUNTER 2017-03-28 07:51 | Inpatient (IN) | payer MEDICARE, OTHER ==
[2017-03-28 08:25] LABS: Basophils % (Auto) 0.6 % (0.0-1.8); Eosinophils % (Auto) 1.8 % (0.0-4.3); Hematocrit 29.5 % (35.5-45.6); Hemoglobin 9.6 gm/dl (11.8-15.2); Mean Corpuscular HGB Conc 33 % (32-34); Mean Corpuscular Hemoglobin 30 pg (28-32); Mean Corpuscular Volume 93 fl (84-94); Platelet Count 134 K/mm3 (140-440); Red Blood Count 3.16 M/mm3 (3.65-5.03); Red Cell Distribution Width 17.2 % (13.2-15.2); White Blood Count 8.5 K/mm3 (4.5-11.0)
[2017-03-28 08:42] LABS: BUN/Creatinine Ratio 7.08; Calcium 6.8 mg/dL (8.4-10.2); Potassium 5.1 mmol/L (3.6-5.0)
--- NOTE | 2017-03-28 08:59 | XRay Report ---
ROUTINE CHEST, TWO VIEWS: HISTORY: Shortness of breath. Compared to 03/19/17. [employer]ile[employer] pacemaker device is unchanged. Mild cardiomegaly, mild pulmonary venous congestion and small right pleural effusion are suspected which appear relatively stable. No consolidation or pneumothorax. The bony structures appear to be diffusely sclerotic which could represent metastatic disease or renal osteodystrophy findings. IMPRESSION: Mild CHF. Sclerotic bones.
[2017-03-28] MEDS ORDERED: NACL 0.9% 1000 ML 1,000 ML IV ONE (10:23)
[2017-03-28] MEDS ORDERED: PROAMATINE PO ONE (11:00)
--- NOTE | 2017-03-28 12:18 | History and Physical Report ---
History of Present Illness Chief complaint: They sent me from dialysis History of present illness: 76 YO Male with HTN, OR, CHF, ESRD on HD (M,W,F)COPD, OA, Chronic Respiratory Failure on Home oxygen, presents to ED for evaluation. Pt states that he had experienced shortness of breath for the past 2 days with worsening symptoms over the past 12 hours. Pt went to dialysis today and was sent to ED for evaluation due to hypotension. Pt denies fever, chills, CP, Palpitations, NVD, Syncope, calf pain, prolonged immobility/travel, individual/family history of DVT/PE, hemoptysis, BRBPR, productive cough, or recent ill contacts. Pt seen and evaluated in ED and found to be in respiratory distress and hypotensive. Past History Past Medical History: acute OR, cancer, ESRD, heart failure, hypertension Past Surgical History: No surgical history (ICD, Bilateral Nephrectomy), Other ( Bilateral Nephrectomy) Social history: , lives with family. denies: smoking, alcohol abuse, prescription drug abuse, IV drug use Family history: CAD, hypertension Medications and Allergies Allergies Allergy/AdvReac Type Severity Reaction Status Date / Time No Known Allergies Allergy Verified 09/29/15 14:30 Home Medications Medication Instructions Recorded Confirmed Last Taken Type Ca Carb/D3/Mag Ox/Chip Tuner/Morgan/Zn 1 each PO DAILY 08/25/15 03/28/17 03/27/17 History [Caltrate+D3 Plus Mineral Minis] Calcium Carbonate/Vitamin D3 1 each PO DAILY 02/28/17 03/28/17 03/27/17 History [Caltrate 600 Plus D3 Tablet] Prednisone [predniSONE] 2.5 mg PO QDAY 02/28/17 03/28/17 03/27/17 History Vit B Comp&C/Folic Acid/Vit D3 1 each PO DAILY 02/28/17 03/28/17 03/27/17 History [Dialyvite 800 Plus D Wafer] Carvedilol [Coreg] 3.125 mg PO DAILY #30 tablet 03/02/17 03/28/17 03/27/17 Rx Megestrol [Megace] 400 mg PO DAILY #30 oral.liqd 03/02/17 03/28/17 03/27/17 Rx Calcium Carbonate [Tums] 500 mg PO BID tablet 03/22/17 03/28/17 03/27/17 Rx Folic Acid/Vit B Comp W-C [Renal 1 cap PO QDAY capsule 03/22/17 03/28/17 Rx Caps] metroNIDAZOLE [Flagyl TAB] 500 mg PO Q8HR #30 tablet 03/22/17 03/28/17 03/27/17 Rx predniSONE [Deltasone] 2.5 mg PO QDAY tablet 03/22/17 03/28/17 03/27/17 Rx Lisinopril [Zestril TAB] 2.5 mg PO 03/28/17 03/28/17 03/27/17 History Review of Systems All systems: negative Constitutional: no weight loss, no weight gain Ears, nose, mouth and throat: no ear pain, no ear discharge, no tinnitis Cardiovascular: shortness of breath, dyspnea on exertion, no chest pain Respiratory: no cough, no cough with sputum, no excessive sputum Gastrointestinal: no abdominal pain, no nausea, no vomiting Genitourinary Male: no dysuria, no hematuria, no flank pain Rectal: no pain, no incontinence Musculoskeletal: no neck stiffness, no neck pain, no shooting arm pain Integumentary: no rash, no pruritis, no redness Neurological: no head injury, no paralysis, no weakness Psychiatric: no anxiety, no memory loss, no sleep disturbances Endocrine: no cold intolerance, no heat intolerance, no polyphagia Hematologic/Lymphatic: no easy bruising, no easy bleeding Allergic/Immunologic: no urticaria, no allergic rhinitis Exam - Constitutional Vitals: Temp Pulse Resp BP Pulse Ox 98.0 F 78 20 98/50 96 03/28/17 09:35 03/28/17 09:35 03/28/17 09:35 03/28/17 09:35 03/28/17 09:35 General appearance: Present: mild distress - EENT Eyes: Present: PERRL ENT: hearing intact, clear oral mucosa - Neck Neck: Present: supple, normal ROM - Respiratory Respiratory effort: labored Respiratory: bilateral: diminished - Cardiovascular Heart Sounds: Present: S1 & S2. Absent: rub, click - Extremities Extremities: pulses symmetrical, No edema Extremity abnormal: edema Peripheral Pulses: within normal limits - Abdominal General gastrointestinal: Present: soft, non-tender, non-distended, normal bowel sounds Male genitourinary: Present: normal - Integumentary Integumentary: Present: clear, warm, dry - Musculoskeletal Musculoskeletal: gait normal, strength equal bilaterally - Psychiatric Psychiatric: appropriate mood/affect, intact judgment & insight - Neurologic Neurologic: CNII-XII intact, moves all extremities Results - Labs CBC & Chem 7: 03/28/17 08:12 03/28/17 08:12 Labs: Abnormal lab results 03/28/17 03/28/17 Range/Units 08:12 08:12 RBC 3.16 L (3.65-5.03) M/mm3 Hgb 9.6 L (11.8-15.2) gm/dl Hct 29.5 L (35.5-45.6) % RDW 17.2 H (13.2-15.2) % Plt Count 134 L (140-440) K/mm3 Lymph % (Auto) 9.1 L (13.4-35.0) % [place] % (Auto) 8.7 H (0.0-7.3) % Lymph # 0.8 L (1.2-5.4) K/mm3 Seg Neutrophils % 79.8 H (40.0-70.0) % Potassium 5.1 H (3.6-5.0) mmol/L Chloride 93.0 L (98-107) mmol/L BUN 51 H (9-20) mg/dL Creatinine 7.2 H (0.8-1.5) mg/dL Calcium 6.8 L (8.4-10.2) mg/dL Troponin T 0.371 H* (0.00-0.029) ng/mL HDL Cholesterol 64 H (40-59) mg/dL Assessment and Plan - Patient Problems (1) Acute respiratory failure Current Visit: No Status: Acute Qualifiers: Respiratory failure complication: hypoxia Qualified Code(s): J96.01 - Acute respiratory failure with hypoxia Plan to address problem: Supplemental oxygen, nebs, aspiration precautions, incentive spirometry, pulmonary toilet, NIVVP as clinically indicated (2) Hyperkalemia Current Visit: Yes Status: Acute Plan to address problem: Nephrology consulted, dialysis as per renal service, No EKG changes. (3) Fluid overload Current Visit: Yes Status: Acute Qualifiers: Hypervolemia type: H Plan to address problem: Fluid restriction, monitor uop q shift, supportive care. (4) Acute exacerbation of CHF (congestive heart failure) Current Visit: No Status: Acute Qualifiers: Congestive heart failure type: systolic Qualified Code(s): I50.23 - Acute on chronic systolic (congestive) heart failure Plan to address problem: Afterload reduction, remote telemetry, supportive care, monitor uop q shift, daily weights, assess for negative fluid balance, dialysis as per renal team. (5) Renal cell carcinoma Current Visit: No Status: Chronic Qualifiers: Laterality: L Plan to address problem: S/P Nephrectomy, supportive care, (6) DVT prophylaxis Current Visit: No Status: Acute
--- NOTE | 2017-03-28 12:36 | Emergency Department Report ---
HPI - General Chief Complaint: Dyspnea/Respdistress Time Seen by Provider: 03/28/17 10:24 - HPI HPI: PATIENT SENT FROM DIALYSIS CENTER WITH LOW BLOOD PRESSURE, AND SOB. PATIENT WAS GIVEN 750ML BOLUS OF NS AT DIALYSIS CENTER WITHOUT AND SIGNIFICANT CHANGE IN HYPOTENSION, SO HE WAS SENT TO ER. PATIENT WITH RECENT ADMISSION FOR C.DIFF. ED Past Medical Hx - Past Medical History Previous Medical History?: Yes Hx Hypertension: Yes Hx Heart Attack/AMI: Yes Hx Congestive Heart Failure: Yes Hx Renal Disease: Yes (dialysis M, W, F) Hx Arthritis: Yes Hx COPD: Yes Hx HIV: No Additional medical history: kidney and prostate cancer - Surgical History Past Surgical History?: Yes Hx Pacemaker: Yes Hx Internal Defibrillator: Yes Additional Surgical History: Bilateral nephrectomy secondary to renal CA. R great toe amputation - Social History Smoking Status: Former Smoker Substance Use Type: None - Medications Home Medications: Home Medications Medication Instructions Recorded Confirmed Last Taken Type Ca Carb/D3/Mag Ox/Foreign Broadcast Specialist/Morgan/Zn 1 each PO DAILY 08/25/15 03/28/17 03/27/17 History [Caltrate+D3 Plus Mineral Minis] Calcium Carbonate/Vitamin D3 1 each PO DAILY 02/28/17 03/28/17 03/27/17 History [Caltrate 600 Plus D3 Tablet] Prednisone [predniSONE] 2.5 mg PO QDAY 02/28/17 03/28/17 03/27/17 History Vit B Comp&C/Folic Acid/Vit D3 1 each PO DAILY 02/28/17 03/28/17 03/27/17 History [Dialyvite 800 Plus D Wafer] Carvedilol [Coreg] 3.125 mg PO DAILY #30 tablet 03/02/17 03/28/17 03/27/17 Rx Megestrol [Megace] 400 mg PO DAILY #30 oral.liqd 03/02/17 03/28/17 03/27/17 Rx Calcium Carbonate [Tums] 500 mg PO BID tablet 03/22/17 03/28/17 03/27/17 Rx Folic Acid/Vit B Comp W-C [Renal 1 cap PO QDAY capsule 03/22/17 03/28/17 Rx Caps] metroNIDAZOLE [Flagyl TAB] 500 mg PO Q8HR #30 tablet 03/22/17 03/28/17 03/27/17 Rx predniSONE [Deltasone] 2.5 mg PO QDAY tablet 03/22/17 03/28/17 03/27/17 Rx Lisinopril [Zestril TAB] 2.5 mg PO 03/28/17 03/28/17 03/27/17 History ED Review of Systems ROS: Stated complaint: CINDA/POSS HYPOTENSION Other details as noted in HPI Physical Exam - Physical Exam Vital Signs: Vital Signs 03/28/17 03/28/17 03/28/17 07:57 09:27 09:35 Temperature 98.4 F 98.0 F Pulse Rate 84 74 78 Respiratory 18 20 20 Rate Blood Pressure 94/54 Blood Pressure 98/50 [Left] O2 Sat by Pulse 100 96 Oximetry Physical Exam: gen: alert and oriented x3 heent: perrla, eomi cv: rrr, nl s1, s2 lungs: cta bila abd: s,nt,nd, pos bs ext: no edema neuro: no deficits psych: normal mood, ED Course Vital Signs 03/28/17 03/28/17 03/28/17 07:57 09:27 09:35 Temperature 98.4 F 98.0 F Pulse Rate 84 74 78 Respiratory 18 20 20 Rate Blood Pressure 94/54 Blood Pressure 98/50 [Left] O2 Sat by Pulse 100 96 Oximetry ED Medical Decision Making - Lab Data Result diagrams: 03/28/17 08:12 03/28/17 08:12 Critical care attestation.: If time is entered above; I have spent that time in minutes in the direct care of this critically ill patient, excluding procedure time. ED Disposition Clinical Impression: Hypotension, ESRD (end stage renal disease) Disposition: - OP ADMIT IP TO THIS HOSP Is pt being admited?: Yes Does the pt Need Aspirin: No Condition: Stable Referrals: PRIMARY CARE,MD [Primary Care Provider] - 3-5 Days
[2017-03-28] MEDS ORDERED: TYLENOL PO PRN (13:03)
--- NOTE | 2017-03-28 13:04 | Admit Criteria Form ---
Admission Criteria Documentation: GENERAL ADMISSION CRITERIA (Place 'X' for any and all applicable criteria): Admission is indicated for ANY ONE of the following: [X ]I. Hemodynamic instability as indicated by ANY ONE of the following(1)(2 )(3)(4)(5): [X ]a) Vital sign abnormality not readily corrected by appropriate treatment within 12 to 24 hours indicated by ANY ONE of the following: [X ]i) Hypotension [ ]ii) Symptomatic Tachycardia unresponsive to treatment (eg , analgesia, fluids, sedation as indicated) [ ]iii) Orthostatic vital sign changes unresponsive to treatment (eg, fluids) [ ]b) Vital sign abnormality that is severe indicated by ANY ONE of the following: [ ]i) Inadequate perfusion indicated by ANY ONE of the following: [ ]1) Lactic acidosis (greater than 2 mmol/L) [ ]2) New abnormal capillary refill (greater than 3 seconds) [ ]3) Other metabolic acidosis (arterial pH less than 7.35) not otherwise explained [ ]4) Reduced urine output [ ]5) Altered mental status [ ]6) Myocardial Ischemia [ ]v) Mean arterial pressure[A] less than 60 mm Hg [ ]vi) Mean arterial pressure[A] less than 70 mm Hg after 30 minutes of appropriate treatment (eg, fluid resuscitation) [ ]vii) IV inotropic or vasopressor medication required to maintain adequate blood pressure or perfusion [ ]viii) Sustained heart rate greater than 120 beats per minute in adult or child 6 years or older[B]] [ ]II. Hypertension requiring inpatient treatment as indicated by ANY ONE of the following(6)(7)(8): [ ]a) SBP greater than 220 mm Hg or DBP greater than 120 mm Hg despite treatment [ ]b) SBP greater than 140 mm Hg or DBP greater than 100 mm Hg with evidence of acute end organ damage as indicated by ANY ONE of the following: [ ]i) Encephalopathy [ ]ii) Acute renal failure as indicated by new onset of ANY ONE of the following(9)(10)(11)(12)(13): [ ]1) A 3-fold rise in serum creatinine from baseline [ ]2) Serum creatinine greater than 4 mg/dL ( 354 micromoles/L) with acute rise greater than 0.5 mg/dL (44.2 micromoles/L) [ ]3) Reduction of more than 75% in estimated glomerular filtration rate from baseline [ ]4) Estimated glomerular filtration rate less than 35 mL/min/1.73m2 (0.59 mL/sec/1.73m2) in child up to 18 years of age [ ]5) Cessation of urine output indicated by ALL of the following: [ ]A. Adequate volume status [ ]B. Inadequate urine output as indicated by ANY ONE of the following: [ ]a. Urine output less than 0.3 mL/kg/hr for 24 hours [ ]b. Anuria (urine output less than 0.1 mL/kg/hr) for 12 hours [ ]iii) Aortic dissection [ ]iv) Myocardial ischemia [ ]v) Left ventricular heart failure [ ]vi) Retinal hemorrhage [ ]vii) Other significant finding [ ]c) Hypertension in child requiring inpatient treatment as indicated by ALL of the following(14)(15)(16): [ ]i) Outpatient treatment not effective, not available, or not appropriate [ ]ii) SBP or DBP greater than 95th percentile for age [ ]iii) Evidence of acute end organ damage as indicated by ANY ONE of the following: [ ]1) Altered mental status [ ]2) Acute renal failure as indicated by new onset of ANY ONE of the following(9)(10)(11)(12)(13): [ ]A. A 3-fold rise in serum creatinine from baseline [ ]B. Serum creatinine greater than 4 mg/dL (354 micromoles/L) with acute rise greater than 0.5 mg/dL (44.2 micromoles/L) [ ]C. Reduction of more than 75% in estimated glomerular filtration rate from baseline [ ]D. Estimated glomerular filtration rate less than 35 mL/min/1.73m2 (0.59 mL/sec/1.73m2)in child up to 18 years of age [ ]E. Cessation of urine output indicated by ALL of the following: [ ]a. Adequate volume status [ ]b. Inadequate urine output as indicated by ANY ONE of the following: [ ]1) Urine output less than 0.3 mL/kg/hr for 24 hours [ ]2) Anuria (urine output less than 0.1 mL/kg/hr) for 12 hours [ ]3) Severe headache [ ]4) Visual disturbance [ ]5) Retinal hemorrhage [ ]6) Other significant finding [ ]III. Acute cardiac or peripheral ischemia as indicated by ANY ONE of the following: [ ]a) Acute coronary syndrome(17)(18) [ ]b) Acute peripheral ischemia (eg, pulseless, cool, mottled, or cyanotic extremity)(19) [ ]IV. Cardiac arrhythmias or findings of immediate concern indicated by ANY ONE of the following(20)(21): [ ]a) Heart rhythms that are inherently dangerous or unstable indicated by ANY ONE of the following(22)(23)(24): [ ]i) Resuscitated ventricular fibrillation or cardiac arrest [ ]ii) Ventricular escape rhythm [ ]iii) Sustained ventricular tachycardia (30 seconds or more of ventricular rhythm at greater than 100 beats per minute) [ ]iv) Nonsustained ventricular tachycardia and ANY ONE of the following: [ ]1) Suspected cardiac ischemia as cause or consequence of ventricular tachycardia [ ]2) In setting of acute myocarditis [ ]b) Unstable cardiac conduction defects indicated by ANY ONE of the following(24)(25)(26): [ ]i) Type II second-degree atrioventricular block [ ]ii) Third-degree atrioventricular block [ ]iii) New-onset left bundle branch block with suspected myocardial ischemia [ ]c) Any heart rhythm and ANY ONE of the following(22)(23)(27)(28)( 29): [ ] i) Continuous long-term ECG monitoring needed (eg, initiation of drug requiring monitoring for more than 24 hours) [ ] ii) Patient has automatic implanted cardioverter defibrillator that is repeatedly firing, malfunctioning, or in need of immediate adjustment of settings beyond the scope of ambulatory or observation care. [ ]d) Heart rhythms of concern due to ANY ONE of the following: [ ]i) Hypotension [ ]ii) Respiratory distress [ ]iii) Association with other significant symptoms (eg, bradycardia with syncope or ongoing dizziness, supraventricular tachycardia with chest pain) (27)(28) (30) [ ] V. Severe heart failure as indicated by ANY ONE of the following ( 31)(32): [ ]a) Respiratory distress [ ]b) Hypotension [ ]c) Anasarca (refractory to outpatient therapy) [ ]d) Cardiac arrhythmias of immediate concern [ ]e) Myocardial ischemia [ ]. Respiratory abnormalities, including ANY ONE of the following(33)(34) (35)(36): [ ]a) Respiratory rate greater than 30 breaths per minute unresponsive to treatment [A] [ ]b) New saturation of arterial oxygen less than 90% [ ]c) New partial pressure of carbon dioxide greater than 44 mm Hg ( 5.9 kPa) [ ]d) Supplemental oxygen or respiratory treatments needed that are new or not performable at other levels of care [ ]e) New-onset cyanosis [ ]f) Inability to protect airway [ ]g) Chronic lung disease with severe deterioration (not responsive to emergency and observation care treatment as appropriate) as indicated by ANY ONE of the following(34)(36 ): [ ]i) SaO2 5% below baseline in patient with chronic hypoxemia [ ]ii) New requirement for supplemental oxygen to keep SaO2 at baseline or acceptable level [ ]iii) Required supplemental oxygen performable only in acute inpatient setting [ ]iv) Severe airflow or ventilation abnormalities [ ]v) Previously mobile patient unable to walk between rooms [ ]vi Inability to eat or sleep due to dyspnea [ ]vii) Rapid rate of exacerbation onset [ ]viii) Altered mental status ]VII. Severe airflow or ventilation abnormalities (not responsive to emergency and observation care treatment as appropriate) as indicated by ANY ONE of the following(33)(34)(35)(37): [ ]a) PCO2 greater than 42 mm Hg (5.6 kPa) and pH less than 7.35 (new ) [ ]b) Documented PCO2 increased more than 5 mm Hg (0.7 kPa) from disease baseline [ ]c) Airflow measurements [B] less than 60% of previous best or predicted (eg, peak expiratory flow rate less than 300 L/minute) despite intensive emergent treatment [C] [ ]d) Required respiratory treatments that are performable only in acute inpatient setting [ ]VIII. Impending or actual respiratory arrest ( Also use Respiratory Failure GRG for severe respiratory disease and long-term mechanical ventilation patients) [ ]IX. Neurologic abnormalities, including ANY ONE of the following: [ ]a) New findings that suggest ANY ONE of the following: [ ]i) S[employer]RI[employer] infection(38) [ ]ii) Cerebral bleeding, ischemia, or vasospasm(39)(40) [ ]iii) Increased intracranial pressure, hydrocephalus, or cerebral edema(41)(42)(43) [ ]iv) Spinal cord injury(44) [ ]b) Uncontrolled seizures(45) [ ]c) New-onset coma (eg, Jeremiah coma scale score less than 9) or unexplained abnormal mental status (eg, Elmer coma scale score less than 14) [D](41)(46)(47) [ ]X. New-onset severe neurologic findings requiring inpatient care; examples include(42)(48)(49): [ ]a) Papilledema [ ]b) Cerebral edema [ ]c) Mass effect on CT scan [ ]XI. Suspected acute intra-abdominal process with peritoneal signs, abdominal mass, or similar findings (50)(51)(52) [ ]XII. Severe physiologic disorder remaining after emergency or observation level care (as appropriate) as indicated by ANY ONE of the following (53): [ ]a) Significant dehydration [ ]b) Diabetic ketoacidosis [ ]c) Hyperglycemic hyperosmolar state (eg, osmolality greater than 320 mOsm/kg (mmol/kg) [ ]d) Hypoglycemia [ ]e) Other (new) acid-base disorder with pH less than 7.35 or greater than 7.5(54) [ ]f) Thyroid storm (55) [ ]g) Myxedema coma (55) [ ]XIII. Abdominal abnormalities with ANY ONE of the following(56)(57): [ ]a) Absent bowel sounds with complete ileus [ ]b) Signs of intestinal obstruction or peritonitis [E] [ ]c) Nausea and vomiting that cannot be controlled with outpatient or observation care [ ]XIV. Acute renal failure as indicated by new onset of ANY ONE of the following(9)(10)(11)(12)(13): [ ]a) A 3-fold rise in serum creatinine from baseline [ ]b) Serum creatinine greater than 4 mg/dL (354 micromoles/L) with acute rise greater than 0.5 mg/dL (44.2 micromoles/L) [ ]c) Reduction of more than 75% in estimated glomerular filtration rate from baseline [ ]d) Estimated glomerular filtration rate less than 35 mL/min/ 1.73m2 (0.59 mL/sec/1.73m2) in child up to 18 years of age [ ]e) Cessation of urine output indicated by ALL of the following: [ ]i) Adequate volume status [ ]ii) Inadequate urine output as indicated by ANY ONE of the following: [ ]1) Urine output less than 0.3 mL/kg/hr for 24 hours [ ]2) Anuria (urine output less than 0.1 mL/kg/hr) for 12 hours [ ]XV. Significant uremic complications as indicated by ANY ONE of the following(58)(59)(60): [ ]a) Outpatient therapy is ineffective or not feasible for ANY ONE of the following: [ ]i) Severe heart failure [ ]ii) Severehypertension [ ]iii) Pleural effusion [ ]iv) Pericarditis or pericardial effusion [ ]b) Cardiac arrhythmias of immediate concern [ ]c) Intractable nausea or vomiting [ ]d) Recurrent seizures [ ]e) Encephalopathy [ ]f) Bleeding abnormalities (eg, platelet dysfunction) with active (eg, gastrointestinal) bleeding [ ]g) Dialysis indicated before long-term access or ambulatory arrangements can be made [ ]h) Significant metabolic or electrolyte abnormalities (eg, severe acidosis or hyperkalemia) [ ]XVI. High fever or other high-risk infection situation as indicated by ANY ONE of the following(61)(62)(63)(64): [ ]a) Outpatient and observation care antimicrobial treatment unavailable, not effective, or not appropriate [ ]b) Documented bacteremia [ ]c) Temperature greater than 40.5 degrees C (104.9 degrees F) ( oral) [ ]d) Temperature greater than 39.5 degrees C (103.1 degrees F) ( oral) or less than 36 degrees C (96.8 degrees F) (rectal) that does not respond to e treatment and observation care [ ] XVII. Temperature less than 95 degrees F (35 degrees C)(rectal)(65) [ ] XVIII. Severe nutritional abnormalities as indicated by ALL of the following (66)(67): [ ]a) Inability to tolerate or establish sufficient oral or other enteral nutrition in outpatient setting [ ]b) Parenteral nutrition regimen need that must be implemented on inpatient basis [ ] XIX. Severe electrolyte abnormalities indicated by ALL of the following(68) (69)(70): [ ]a) Electrolytes and associated findings are not as expected for patient baseline or acceptable treatment effects. [ ]b) Severe abnormalities indicated by ANY ONE of the following: [ ]i) Sodium less than 130 mEq/L (mmol/L) (new) [ ]ii)Sodium less than 135 mEq/L (mmol/L) with ANY ONE of the following: [ ]1) Uncorrectable (to near normal or chronic baseline) after trial of outpatient and emergency treatment [ ]2) Altered mental status [ ]3) Seizures [ ]4) Severe medical etiology requiring inpatient management (eg, heart failure, hypovolemia) [ ]iii) Sodium greater than 155 mEq/L (mmol/L) [ ]iv) Sodium greater than 150 mEq/L (mmol/L) with ANY ONE of the following: [ ]1) Uncorrectable (to near normal or chronic baseline) with outpatient and emergency treatment [ ]2) Altered mental status [ ]3) Seizures [ ]4) Severe medical etiology (eg, hypovolemia, diabetes insipidus) [ ]v) Potassium less than 2.5 mEq/L (mmol/L) despite outpatient and emergency treatment [ ]vi) Potassium less than 3 mEq/L (mmol/L) with ANY ONE of the following: [ ]1) Weakness [ ]2) Cardiac abnormality (eg, arrhythmia, conduction disturbance) [ ]3) Cardiac ischemia [ ]4) Ileus [ ]5) Ongoing medical cause requiring inpatient management (eg, acute renal wasting or SIADH) [ ]6) Other severe symptoms [ ]vii) Potassium greater than 6.5 mEq/L (mmol/L) [ ]viii) Potassium greater than 5 mEq/L (mmol/L) with ANY ONE of the following: [ ]1) Uncorrectable (to near normal or chronic baseline) with outpatient and emergency treatment [ ]2) Severe ECG findings [F] [ ]3) Acute worsening of renal failure (creatinine greater than 2.5 mg/dL (221 micromoles/L) or significant elevation for age and size) [ ]4) Severe weakness [ ]5) Severe medical etiology (eg, hemolysis, infection, drug overdose) [ ]ix) Calcium less than 7 mg/dL (1.75 mmol/L) despite outpatient and emergency treatment (72) [ ]x) Calcium less than 8 mg/dL (2 mmol/L) with significant symptoms or findings; examples include(72): [ ]1) Altered mental status [ ]2) Muscle spasms [ ]3) Seizures [ ]4) Breathing difficulty [ ]5) Cardiac abnormality (eg, arrhythmia or conduction disturbance) [ ]xi) Calcium greater than 14 mg/dL (3.5 mmol/L)(72) [ ]xii) Calcium greater than 12 mg/dL (3 mmol/L) with ANY ONE of the following(72): [ ]1) Uncorrectable (to near normal or chronic baseline) with outpatient and emergency treatment [ ]2) Significant dehydration or hypovolemia as indicated by ALL of the following(70)(73)(74): [ ]A. Not resolved with initial treatments [ ]B. Clinically significant dehydration as indicated by ANY ONE of the following: [ ]a. Vomiting refractory to outpatient treatment (ie, precluding oral rehydration) [ ]b. Inability to drink [ ]c. Hypernatremia or other electrolyte abnormality unable to be corrected with outpatient and emergency treatment [ ]d. Failure to remain hydrated with outpatient therapy [ ]e. Reduced urine output [ ]f. Hypotension [ ]g. Serious cause for dehydration requiring acute hospitalization (eg, bowel obstruction, increased intracranial pressure, infectious cause) [ ]h. Child with ANY ONE of the following(75): [ ]1) Severe abdominal tenderness [ ]2) Adequate care not available at home [ ]3) Severe dehydration ( greater than 9% loss of body weight) [ ]4) Significant symptoms or findings; examples include: [ ]A. Altered mental status [ ]B. Cardiac abnormality (eg, arrhythmia, conduction disturbance) [ ]C. Malignant etiology requiring inpatient treatment [ ]xiii) Phosphorus less than 1 mg/dL (0.32 mmol/L) [ ]xiv) Phosphorus less than 1.5 mg/dL (0.48 mmol/L) with ANY ONE of the following: [ ]1) Patient unresponsive to outpatient and emergency treatment [ ]2) Significant symptoms or findings; examples include: [ ]A. Weakness [ ]B. Altered mental status [ ]C. Breathing difficulty [ ]D. Seizures [ ]E. Rhabdomyolysis [ ]xv) Phosphorus greater than 10 mg/dL (3.2 mmol/L) [ ]xvi) Phosphorus greater than 4.5 mg/dL (1.45 mmol/L) (new) with ANY ONE of the following: [ ]1) Severe medical etiology (eg, crush injury, acute renal failure) [ ]2) Associated hypocalcemia with significant findings; examples include: [ ]A. Neurologic symptoms [ ]B. Altered mental status [ ]C. Muscle spasms [ ]D. Seizures [ ]E. Breathing difficulty [ ]F. Cardiac abnormality (eg, arrhythmia, conduction disturbance) [ ]xvii) Magnesium less than 1 mg/dL (0.41 mmol/L) [ ]xviii) Magnesium less than 1.5 mg/dL (0.62 mmol/L) with ANY ONE of the following: [ ]1) Patient unresponsive to outpatient and emergency treatment [ ]2) Associated hypocalcemia with significant findings; examples include: [ ]A. Altered mental status [ ]B. Muscle spasms [ ]C. Seizures [ ]D. Breathing difficulty [ ]E. Cardiac abnormality (eg, arrhythmia , conduction disturbance) [ ]3) Associated hypokalemia (potassium less than 3 mEq/L (mmol/L)) with risk of arrhythmia [ ]xix) Magnesium greater than 4 mEq/L (2 mmol/L) [ ]xx) Magnesium greater than 2.5 mEq/L (1.25 mmol/L) with significant symptoms or findings; examples include: [ ]1) Weakness [ ]2) Altered mental status [ ]3) Cardiac abnormality (eg, arrhythmia, conduction disturbance) [ ]4) Breathing difficulty [ ]5) Severe medical etiology (eg, renal failure, hypovolemia) [ ]xxi) Uric acid greater than 20 mg/dL (1190 micromoles/L)(76) [ ]xxii) Uric acid greater than 8 mg/dL (476 micromoles/L) with significant symptoms or findings of tumor lysis syndrome; examples include(76): [ ]1) Creatinine greater than 1.5 times upper limit of normal [ ]2) Cardiac abnormality (eg, arrhythmia, conduction disturbance) [ ]3) Seizure [ ]XX. Acute blood loss causing significant abnormality as indicated by ANY ONE of the following(77)(78): [ ]a) Hemoglobin less than 10 g/dL (100 g/L) (not baseline) [ ]b) Hematocrit less than 30% (0.30) (not baseline) [ ]c) Repeat hematocrit decreased more than 2% (0.02) [ ]d) Uncontrolled bleeding [ ]XXI. Severe anemia indicated by ANY ONE of the following(78)(79): [ ]a) Altered mental status [ ]b) Chest pain [ ]c) Exertional dyspnea [ ]d) Syncope [ ]e) Other findings suggesting inadequate perfusion [ ]f) Treatment with transfusion or volume replacement is ineffective at resolving ANY ONE of the following [G]: [ ]i) Tachycardia for age [ ]ii) Orthostatic vital sign changes as indicated by ANY ONE of the following(80): [ ]1) Fall in SBP of 20 mm Hg or more 1 to 3 minutes after patient sits or stands from recumbent position [ ]2) Fall in DBP of 10 mm Hg or more 1 to 3 minutes after patient sits or stands from recumbent position [ ]XXII. High-risk low platelet count as indicated by ANY ONE of the following( 81)(82): [ ]a) Severe or life-threatening bleeding (eg, intracranial, major gastrointestinal, or extensive mucosal bleeding), with any reduced platelet count [ ]b) Platelet count less than 20,000/mm3 (20 x109/L) with any active bleeding [ ]c) Platelet count less than 10,000/mm3 (10 x109/L) with minor purpura or petechiae [ ]d) Platelet count less than 5000/mm3 (5 x109/L) [ ]e) Low platelet count with hemolytic anemia [ ]XXIII. Disseminated intravascular coagulation(77)(83) [ ]XXIV. Severe adverse drug or systemic toxin reaction requiring inpatient treatment; examples include(84)(85): [ ]a) Serotonin syndrome(86) [ ]b) Neuroleptic malignant syndrome(86) [ ]c) Cholinergic syndrome with severe symptoms (eg, bronchorrhea, weakness, mental status changes, seizures) [ ]d) Sympathetic syndrome with severe symptoms (eg, seizures, mental status changes, cardiac dysrhythmias) [ ]e) Anticholinergic syndrome [ ]XXV. Severe pain requiring acute inpatient management as indicated by ALL of the following (87)(88)(89): [ ]a) Continuous or frequent (eg, every 2 to 4 hours) parenteral analgesics required [H] [ ]b) Rapid improvement expected from treatment or acute intervention (eg, surgery, anesthesia procedure) [ ]XXVI.Severe behavioral health issues judged unmanageable at a lower level of care (eg, residential) in a patient who is ANY ONE of the following(91) [ ]a) Acutely suicidal [ ]b) A danger to self (eg, self-mutilating or suicidal behavior) [ ]c) A danger to others (eg, assaultive or homicidal behavior) [ ]d) Incapacitated because of grave disability (eg, inability to provide for self at lower level of care) (92) [ ]XXVII. Inpatient monitoring needed; examples include(1)(3)(87)(93)(94)(95)(96 ): [ ]a) Vital signs, neurologic signs, or vascular checks more frequently than every 4 hours [ ]b) Cardiac or respiratory monitoring beyond the scope (eg, over 24 hours) of observation care [ ]c) Pulmonary artery catheter monitoring [ ]d) Suspected compartment syndrome(97) (98) [ ]e) Cerebral bleeding, hydrocephalus, or vasospasm monitoring [ ]f) Increased intracranial pressure or cerebral edema monitoring [ ]g) monitoring [ ]XXVIII. Treatment requiring inpatient care; examples include: [ ]a) IV fluid to replace significant ongoing losses (greater than 3 L/m2 per day)(53) [ ]b) High concentration oxygen (greater than 40%)(33)(99)(100) [ ]c) Frequent respiratory therapy (more frequently than every 4 hours) to maintain airflow rates greater than 60% of baseline(33)(99)(100) [ ]d) Epidural analgesia(87) [ ]e) IV anticoagulation, vasoactive, or antiarrhythmic medication(19 )(23) [ ]f) Acute thrombolytics (generally require 24 hours of observation )(101)(102) [ ]XXIX. Emergency procedures needed; examples include: [ ]a) Emergency inpatient surgery [ ]b) Temporary pacemaker placement(103) [ ]c) Chest tube placement with active evacuation (eg, suction, drainage)(104) [ ]d) Emergent cardioversion(105) [ ]e) Emergent cardiac or vascular procedures (eg, cardiac catheterization, angioplasty) (17)(18) [ ]f) Emergent dialysis access placement and institution(10)(106) [ ]g) Emergent pericardiocentesis(107) [ ]h) Emergent plasmapheresis or leukapheresis(83) [ ]i) Emergent tracheostomy The original [employer] content created by [employer] has been revised. The portions of the content which have been revised are identified through the use of italic text or in bold, and [employer] has neither reviewed nor approved the modified material. All other unmodified content is copyright [employer]. Please see references footnoted in the original [employer] edition 2016 Admission Criteria Met: Yes
--- NOTE | 2017-03-29 09:20 | Progress Note ---
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 * chronic hypotension Plan: * Hemodialysis today * UF as tolerated * Epogen with HD * Renal diet * needs palliative care/hospice discussion with family * start on midodrine tid * home after hd of bp is stable Subjective Date of service: 03/29/17 Principal diagnosis: esrd Interval history: resting in bed today Objective - Exam Narrative Exam: General appearance: well-developed, frail EENT: ATNC Respiratory: Present: Clear to Ascultation Cardiology: regular, S1S2 Gastrointestinal: normal, no tenderness, no distended Integumentary: no rash Musculoskeletal: other (no edema) Psychiatric: cooperative - Vital Signs Vital signs: Vital Signs - 12hr 03/28/17 03/29/17 03/29/17 22:00 00:17 05:21 Temperature 99.0 F Pulse Rate 70 61 60 Respiratory 18 18 Rate Respiratory 19 Rate [denies] Blood Pressure 107/48 O2 Sat by Pulse 98 100 Oximetry 03/29/17 08:04 Temperature Pulse Rate Respiratory Rate Respiratory Rate [denies] Blood Pressure O2 Sat by Pulse 96 Oximetry - Lab 03/28/17 08:12 03/28/17 08:12 Most recent lab results Calcium 6.8 mg/dL (8.4-10.2) L 03/28/17 08:12
[2017-03-29] MEDS: PROAMATINE PO SCH ×3 (10:00→22:45)
[2017-03-29] MEDS ORDERED: NACL 0.9% 100 ML IV PRN (10:00)
[2017-03-29] MEDS ORDERED: PROCRIT IV PRN (10:00)
[2017-03-29] MEDS ORDERED: NACL 0.9 (PRIMING MACHINE ONLY DIALYSIS) MC ONE (11:45)
--- NOTE | 2017-03-29 15:46 | Progress Note ---
Assessment and Plan Assessment and plan: Patient is a 76 yo man with a h/o htn, CO, CHF, systolic heart failure, Renal cell cancer with bilateral nephrectomy resulting in ESRD on HD (M,W,F), VT/VF with AICD, AOCD, COPD, OA, prostate cancer, colon cancer and Chronic Respiratory Failure on Home oxygen who presents to ED with sob and hypotension at hemodialysis center. Pulse ox was 86%. He was discharged from here on to home Hospice. -Acute on chronic hypoxic respiratory failure: treat with O2 -ESRD with fluid overload: Consulted nephrology, Supplemental oxygen, nebs, aspiration precautions, incentive spirometry, pulmonary toilet, NIVVP as clinically indicated -Hyperkalemia: needing HD -Acute exacerbation of CHF (congestive heart failure), acute on chronic diastolic heart failure: Afterload reduction, remote telemetry, supportive care , monitor uop q shift, daily weights, assess for negative fluid balance, dialysis as per renal team. -Renal cell carcinoma/Prostate cancer: S/P Nephrectomy, supportive care, -DVT prophylaxis: added sq heparin History Interval history: Patient was seen and examined. Follow up SOB which has improved. No cp, severe headache Hospitalist Physical - Constitutional Vitals: Temp Pulse Resp BP Pulse Ox 98.7 F 65 18 136/53 100 03/29/17 10:40 03/29/17 12:15 03/29/17 10:40 03/29/17 12:15 03/29/17 10:00 General appearance: Present: no acute distress - EENT Eyes: Present: PERRL, EOM intact ENT: clear oral mucosa - Neck Neck: Present: supple, normal ROM - Respiratory Respiratory effort: normal Respiratory: bilateral: CTA - Cardiovascular Rhythm: regular Heart Sounds: Present: S1 & S2 - Extremities Extremities: no ischemia Peripheral Pulses: within normal limits - Abdominal General gastrointestinal: soft, non-tender, non-distended, normal bowel sounds - Integumentary Integumentary: Present: clear, warm, dry - Psychiatric Psychiatric: appropriate mood/affect - Neurologic Neurologic: CNII-XII intact, no focal deficits, moves all extremities - Allied Health Allied health notes reviewed: nursing Results - Labs CBC & Chem 7: 03/28/17 08:12 03/28/17 08:12 Labs: Laboratory Last Values WBC 8.5 K/mm3 (4.5-11.0) 03/28/17 08:12 RBC 3.16 M/mm3 (3.65-5.03) L 03/28/17 08:12 Hgb 9.6 gm/dl (11.8-15.2) L 03/28/17 08:12 Hct 29.5 % (35.5-45.6) L 03/28/17 08:12 MCV 93 fl (84-94) 03/28/17 08:12 MCH 30 pg (28-32) 03/28/17 08:12 MCHC 33 % (32-34) 03/28/17 08:12 RDW 17.2 % (13.2-15.2) H 03/28/17 08:12 Plt Count 134 K/mm3 (140-440) L 03/28/17 08:12 Lymph % (Auto) 9.1 % (13.4-35.0) L 03/28/17 08:12 Polk % (Auto) 8.7 % (0.0-7.3) H 03/28/17 08:12 Eos % (Auto) 1.8 % (0.0-4.3) 03/28/17 08:12 Baso % (Auto) 0.6 % (0.0-1.8) 03/28/17 08:12 Lymph # 0.8 K/mm3 (1.2-5.4) L 03/28/17 08:12 Polk # 0.7 K/mm3 (0.0-0.8) 03/28/17 08:12 Eos # 0.2 K/mm3 (0.0-0.4) 03/28/17 08:12 Baso # 0.0 K/mm3 (0.0-0.1) 03/28/17 08:12 Seg Neutrophils % 79.8 % (40.0-70.0) H 03/28/17 08:12 Seg Neutrophils # 6.8 K/mm3 (1.8-7.7) 03/28/17 08:12 Sodium 139 mmol/L (137-145) 03/28/17 08:12 Potassium 5.1 mmol/L (3.6-5.0) H 03/28/17 08:12 Chloride 93.0 mmol/L (98-107) L 03/28/17 08:12 Carbon Dioxide 30 mmol/L (22-30) 03/28/17 08:12 Anion Gap 21 mmol/L 03/28/17 08:12 BUN 51 mg/dL (9-20) H 03/28/17 08:12 Creatinine 7.2 mg/dL (0.8-1.5) H 03/28/17 08:12 Estimated GFR 7 ml/min 03/28/17 08:12 BUN/Creatinine Ratio 7.08 % 03/28/17 08:12 Glucose 96 mg/dL (75-100) 03/28/17 08:12 Calcium 6.8 mg/dL (8.4-10.2) L 03/28/17 08:12 Troponin T 0.371 ng/mL (0.00-0.029) H* 03/28/17 08:12 Triglycerides 64 mg/dL (2-149) 03/28/17 08:12 Cholesterol 132 mg/dL (50-199) 03/28/17 08:12 LDL Cholesterol Direct 56 mg/dL (50-130) 03/28/17 08:12 HDL Cholesterol 64 mg/dL (40-59) H 03/28/17 08:12 Cholesterol/HDL Ratio 2.06 % 03/28/17 08:12
[2017-03-30 06:17] LABS: Hematocrit 25.6 % (35.5-45.6); Hemoglobin 8.4 gm/dl (11.8-15.2); Mean Corpuscular HGB Conc 33 % (32-34); Mean Corpuscular Hemoglobin 31 pg (28-32); Mean Corpuscular Volume 93 fl (84-94); Platelet Count 127 K/mm3 (140-440); Red Blood Count 2.74 M/mm3 (3.65-5.03); Red Cell Distribution Width 17.4 % (13.2-15.2); White Blood Count 5.7 K/mm3 (4.5-11.0)
[2017-03-30 06:30] LABS: BUN/Creatinine Ratio 6.42; Calcium 6.1 mg/dL (8.4-10.2); Chloride 98.2 mmol/L (98-107); Potassium 4.3 mmol/L (3.6-5.0)
[2017-03-30] MEDS: PROAMATINE PO SCH ×2 (06:35→13:58)
--- NOTE | 2017-03-30 09:44 | Consultation ---
History of Present Illness Consult date: 03/30/17 Consult reason: elevated troponin History of present illness: This is a 76yr old man with end stage renal disease who was sent to the ED from dialysis with hypotension and shortness of breath. His chest x-ray reports mild CHF. Patient reports he is feeling better since his initial treatment. He reports his breathing is better. Cardiac consultation was requested for elevated troponin. Patient denies chest pain. His ECG shows a ventricular paced rhythm. Patient has multiple medical problems. He has a cardiac history of VT/VF and a severe dilated nonischemic cardiomyopathy. He had a cardiac cath 2 years ago that reports no significant coronary artery disease but an ejection fraction of 15%. He also has an AICD in place. Patient denies AICD discharge. Past History Past Medical History: cancer, ESRD, heart failure, hypertension Past Surgical History: Other (Bilateral Nephrectomy, AICD) Social history: , lives with family. denies: smoking, alcohol abuse, prescription drug abuse, IV drug use Family history: CAD, hypertension Medications and Allergies Allergies Allergy/AdvReac Type Severity Reaction Status Date / Time No Known Allergies Allergy Verified 09/29/15 14:30 Home Medications Medication Instructions Recorded Confirmed Last Taken Type Ca Carb/D3/Mag Ox/House Coordinator/Morgan/Zn 1 each PO DAILY 08/25/15 03/28/17 03/27/17 History [Caltrate+D3 Plus Mineral Minis] Calcium Carbonate/Vitamin D3 1 each PO DAILY 02/28/17 03/28/17 03/27/17 History [Caltrate 600 Plus D3 Tablet] Prednisone [predniSONE] 2.5 mg PO QDAY 02/28/17 03/28/17 03/27/17 History Vit B Comp&C/Folic Acid/Vit D3 1 each PO DAILY 02/28/17 03/28/17 03/27/17 History [Dialyvite 800 Plus D Wafer] Carvedilol [Coreg] 3.125 mg PO DAILY #30 tablet 03/02/17 03/28/17 03/27/17 Rx Megestrol [Megace] 400 mg PO DAILY #30 oral.liqd 03/02/17 03/28/17 03/27/17 Rx Calcium Carbonate [Tums] 500 mg PO BID tablet 03/22/17 03/28/17 03/27/17 Rx Folic Acid/Vit B Comp W-C [Renal 1 cap PO QDAY capsule 03/22/17 03/28/17 Rx Caps] metroNIDAZOLE [Flagyl TAB] 500 mg PO Q8HR #30 tablet 03/22/17 03/28/17 03/27/17 Rx predniSONE [Deltasone] 2.5 mg PO QDAY tablet 03/22/17 03/28/17 03/27/17 Rx Lisinopril [Zestril TAB] 2.5 mg PO 03/28/17 03/28/17 03/27/17 History Active Meds: Active Medications Acetaminophen (Tylenol) 650 mg PO Q4H PRN PRN Reason: Pain MILD(1-3)/Fever >100.5/PHILLIPS Epoetin Amor (Procrit) 10,000 unit IV [place] PRN PRN Reason: hemodialysis Last Admin: 03/29/17 14:00 Dose: 10,000 unit Heparin Sodium (Porcine) (Heparin) 5,000 unit SUB-Q Q12HR ALEX Sodium Chloride (Nacl 0.9%) 100 mls @ 999 mls/hr IV [place] PRN PRN Reason: Hypotension Midodrine (Proamatine) 5 mg PO Q8HR ALEX Last Admin: 03/30/17 06:35 Dose: 5 mg Physical Examination Vital Signs Temp Pulse Resp BP Pulse Ox 98.4 F 84 18 94/54 100 03/28/17 07:57 03/28/17 07:57 03/28/17 07:57 03/28/17 07:57 03/28/17 07:57 General appearance: no acute distress HEENT: Positive: PERRL Cardiac: Positive: Other (v paced) Results 03/30/17 05:21 03/30/17 05:21 CBC 03/30/17 Range/Units 05:21 WBC 5.7 (4.5-11.0) K/mm3 RBC 2.74 L (3.65-5.03) M/mm3 Hgb 8.4 L (11.8-15.2) gm/dl Hct 25.6 L (35.5-45.6) % Plt Count 127 L (140-440) K/mm3 Comprehensive Metabolic Panel 03/30/17 Range/Units 05:21 Sodium 141 (137-145) mmol/L Potassium 4.3 (3.6-5.0) mmol/L Chloride 98.2 (98-107) mmol/L Carbon Dioxide 28 (22-30) mmol/L BUN 36 H (9-20) mg/dL Creatinine 5.6 H (0.8-1.5) mg/dL Glucose 93 (75-100) mg/dL Calcium 6.1 L (8.4-10.2) mg/dL Assessment and Plan Hypotension on midodrine Volume overload ESRD on HD Hx of Dilated Nonischemic CMP, EF 10% [facility] 2014: no significant CAD Presence of AICD Metastatic cancer Renal cell cancer with bilateral nephrectomy Elevated troponin, nonspecific Conservative cardiac management.
[2017-03-30 09:54] VITALS: BP 124/66
--- NOTE | 2017-03-30 10:37 | Progress Note ---
Subjective Principal diagnosis: esrd Interval history: Patient was seen today for follow-up Denies any complaints of shortness of breath chest pain he does not want to go dialysis todayAt any cost Patient stated that he has been on dialysis for many years and there is no indication for dialysis today he already feels weak and tired Interdisciplinary notes were also reviewed Events of 24 hours vitals labs intake output medications were reviewed Social history: Reviewed Medication: Reviewed Family history: Reviewed General: Alert awake nor acute distress HEENT: Oral mucosa moist no uremic order Neck: Supple no JVD Chest: Clear to auscultation Heart: Regular rate and rhythm S1-S2 heard Abdomen: Soft nontender Extremity: Dry skin edema minimal Neurological: Alert awake and oriented Assessment and plan end-stage renal disease: Patient was counseled and educated he refuses to do dialysis today but wants to go for dialysis if needed during the weekend on Sunday at the dialysis center and if worse he will come back to the hospital Anemia and end-stage renal disease to monitor and follow secondary hyperparathyroidism: To monitor and follow Patient did receive adequate counseling and education and he will regulate his fluid sodium in diet for next 2-3 days and return back for dialysis at the clinic if needed he will come to the ER Patient did receive adequate counseling and education regarding all the renal related issues Pertinent questions were answered Prognosis is currently guarded We'll continue to follow and make recommendations from renal standpoint Objective - Vital Signs Vital signs: Vital Signs - 12hr 03/30/17 03/30/17 03/30/17 08:15 09:53 10:00 Temperature 98.5 F Pulse Rate 75 86 Respiratory 20 Rate Blood Pressure 124/66 O2 Sat by Pulse 100 Oximetry - Lab 03/30/17 05:21 03/30/17 05:21 Most recent lab results Calcium 6.1 mg/dL (8.4-10.2) L 03/30/17 05:21
--- NOTE | 2017-03-30 15:52 | Discharge Summary ---
Providers - Providers Date of Admission: 03/28/17 13:03 Date of discharge: 03/30/17 Attending physician: THEA SAENZ 03/28/17 13:06 Consult to Physician [CONS] Routine Consulting Provider: ANANYA SHELBY Reason For Exam: esrd Place consult to:: nephrology Notified:: y If yes, spoke with:: dr shelby 03/29/17 15:50 Consult to Physician [CONS] Routine Consulting Provider: JUAN MIGUEL VARELA Reason For Exam: Elevated troponin Place consult to:: Dr. Varela Notified:: FLAVIO AVELAR Primary care physician: [facility] Hospitalization Reason for admission: hypotension Condition: Stable Pertinent studies: Chest x-ray Hospital course: Patient is a 76 years old male with renal cell carcinoma status post bilateral nephrectomy on HD, severe dilated cardiomyopathy with EF 10-15%, with history of VT/VF, status post AICD placement, with multiple episodes of hypotension during dialysis, who was sent to the hospital for hypotension and shortness of breath from dialysis center. He was already on midodrine prior to HD. Chest x -ray showed mild CHF. Fluid management is only through HD. Cardiology and nephrology consulted, but options very limited. Due to his poor prognosis, hospice was recommended and patient agreed, so he will be discharged on home hospice. Discharge diagnoses: Dilated nonischemic cardiomyopathy Chronic hypotension Renal cell carcinoma status post bilateral nephrectomy on hemodialysis Disposition: DC-50 TO HOSPICE (HOME) Time spent for discharge: 35 min Core Measure Documentation - Palliative Care Palliative Care/ Comfort Measures: Hospice Care - Core Measures Any of the following diagnoses?: heart failure - Heart Failure Discharge Requirements MARCIA/ARB for LVSD if EF <40%: No Reason for no MARCIA/ARB: Hypotension Beta fay at discharge: No Reason for no beta fay on DC: Hypotension Exam - Physical Exam Narrative exam: Seen and examined: - Constitutional Vitals: Temp Pulse Resp BP Pulse Ox 98.5 F 86 20 124/66 100 03/30/17 09:53 03/30/17 10:00 03/30/17 09:53 03/30/17 09:53 03/30/17 08:15 General appearance: Present: no acute distress - Neck Neck: Present: supple. Absent: enlarged thyroid, masses or JVD - Respiratory Respiratory effort: normal Respiratory: bilateral: diminished, negative: rhonchi, wheezing - Cardiovascular Rhythm: regular Heart Sounds: Present: S1 & S2. Absent: systolic murmur - Extremities Extremities: no ischemia - Abdominal General gastrointestinal: Present: soft, non-tender, non-distended, normal bowel sounds - Neurologic Neurologic: no focal deficits Plan Activity: advance as tolerated, fall precautions Diet: regular Follow up with: PRIMARY CARE, [Primary Care Provider] - 3-5 Days Prescriptions: Midodrine [Proamatine] 5 mg PO Q8HR #45 tablet
[2017-03-30] MEDS ORDERED: HEPARIN SUB-Q SCH (16:00)
== END 2017-03-30 16:40 | disposition hospice, home (50) | DRG 291 ==
LOC: ED 07:51 → CC2 13:03
PROVIDERS: ADMIT Internal Medicine; ATTEND Internal Medicine
PROC: 5A1D00Z (ICD-10-PCS; principal; 2017-03-29)
DX: I13.2 Hypertensive heart and chronic kidney disease with heart failure and with stage 5 chronic kidney disease, or end stage renal disease (principal); N18.6 End stage renal disease; J96.21 Acute and chronic respiratory failure with hypoxia; I50.43 Acute on chronic combined systolic (congestive) and diastolic (congestive) heart failure; A04.7 Enterocolitis due to Clostridium difficile; C79.51 Secondary malignant neoplasm of bone; E87.5 Hyperkalemia; J44.9 Chronic obstructive pulmonary disease, unspecified; M19.90 Unspecified osteoarthritis, unspecified site; D63.1 Anemia in chronic kidney disease; I95.89 Other hypotension; I25.2 Old myocardial infarction; Z85.9 Personal history of malignant neoplasm, unspecified; Z90.5 Acquired absence of kidney; Z85.46 Personal history of malignant neoplasm of prostate; Z99.81 Dependence on supplemental oxygen; Z85.038 Personal history of other malignant neoplasm of large intestine; Z89.411 Acquired absence of right great toe; Z87.891 Personal history of nicotine dependence; Z82.49 Family history of ischemic heart disease and other diseases of the circulatory system; Z95.810 Presence of automatic (implantable) cardiac defibrillator; Z85.528 Personal history of other malignant neoplasm of kidney
CPT/HCPCS: 36415; 71020; 80048; 80061; 84484; 85025; 85027; 93005; 93010; 94760; 96361; 96374; 99285; J0885; J7030